=== PATIENT | female | born 1970 | race Caucasian/White ===

== ENCOUNTER → 2017-01-14 | Outpatient (CLI) | payer BC ==
[~2017-01-14] MED LIST: CETI10TA PO; IBUP60TA PO; NORCOTAB PO; WELLTAB38 PO; XANA0.25 PO; epi pen
--- NOTE | 2017-01-14 08:48 | REPMRS ---
Patient History The patient states she had a clinical breast exam in 11/2016. Patient is postmenopausal. No known family history of cancer. Digital Woman Screen Mammo: January 14, 2017 - Exam #: [id number] Bilateral CC and MLO view(s) were taken. Technologist: Darline Victor, Technologist Prior study comparison: December 29, 2015, digital woman screen mammo performed at [facility]. December 16, 2014, digital woman screen mammo performed at [facility]. November 25, 2013, digital woman screen mammo performed at [facility]. FINDINGS: There are scattered fibroglandular densities. Radiolucent nipple jewelry is noted bilaterally. There has been no change in the appearance of the mammogram from the prior studies. There is a mild amount of scattered fibroglandular density which is fairly symmetric. There is no interval development of dominant mass, architectural distortion, or clustered microcalcification suggestive of malignancy. ASSESSMENT: BI-RADS/ACR category 1 mammogram. Negative. Recommendation Routine screening mammogram in 1 year (for women over age 40). This mammogram was interpreted with the aid of an FDA-approved computer-aided dectection system. Electronically Signed By: Weston Olson MD 01/14/17 0883
== END ==
LOC: M WHC 07:48
PROVIDERS: ATTEND Obstetrics & Gynecology
DX: Z12.31 Encounter for screening mammogram for malignant neoplasm of breast (principal)

== ENCOUNTER → 2018-02-03 | Outpatient (CLI) | payer BC | LOC: M WHC 12:13 | DX: Z12.31 Encounter for screening mammogram for malignant neoplasm of breast (principal) | CPT/HCPCS: 77067 ==

== ENCOUNTER → 2019-02-24 | Outpatient (CLI) | payer BC ==
[~2019-02-24] MED LIST changes: +HYDR-3715 PO; +IBUP600T42 PO; -IBUP60TA PO; -NORCOTAB PO
--- NOTE | 2019-02-24 16:45 | REPMRS ---
Patient History The patient states she had a clinical breast exam in 01/2019. No known family history of cancer. 3D TOMOSYNTHESIS WAS PERFORMED. The [facility] lifetime risk for breast cancer is 8.4%. Digital Woman Screen Mammo: February 24, 2019 - Exam #: [id number] Bilateral CC and MLO view(s) were taken. Technologist: Daniela Burnham, Technologist Prior study comparison: February 03, 2018, bilateral digital woman screen mammo performed at [facility]. January 14, 2017, digital woman screen mammo performed at [facility]. FINDINGS: There are scattered fibroglandular densities. There has been no change in the appearance of the mammogram from the prior studies. There is a mild amount of residual fibroglandular tissue which is fairly symmetric. There is no interval development of dominant mass, architectural distortion, or clustered microcalcification suggestive of malignancy. Assessment: BI-RADS/ACR category 1 mammogram. Negative Mammogram. Recommendation Routine screening mammogram in 1 year (for women over age 40). This mammogram was interpreted with the aid of an FDA-approved computer-aided dectection system. Electronically Signed By: Ulisses Samano MD 02/24/19 [id number]
== END ==
LOC: M WHC 14:53
PROVIDERS: ATTEND Obstetrics & Gynecology
DX: Z12.31 Encounter for screening mammogram for malignant neoplasm of breast (principal)

== ENCOUNTER → 2019-05-14 | Outpatient (CLI) | payer BC, OTHER ==
--- NOTE | 2019-05-14 09:53 | REP ---
MRI left knee without contrast: History: Pain in the left knee. Rule out meniscal tear. No comparison radiographs. Technique: Axial, coronal and sagittal imaging planes were utilized. T1 and T2-weighted scans were obtained with and without fat saturation. MRI findings: Cortical and medullary bone signal intensity are normal. There is a tiny amount of joint fluid. A small Galeano's cyst is seen in the posteromedial popliteal soft tissues. This measures up to 2.3 cm in length. It is quite small. Medial and lateral patellar retinacular structures are intact. Patellar and quadriceps tendons have an intact appearance. There is no evidence of anterior or posterior cruciate ligament disruption. Medial and lateral collateral ligamentous components appear intact. There is a focal tear of the inner free margin of the anterior horn of the lateral meniscus visible on sagittal images. No displaced meniscal material is seen. No medial meniscal tear is appreciated. There is mild chondromalacia in the medial and central patella. No full-thickness articular cartilage lesion is seen. The exam is otherwise unremarkable. Impression: Findings consistent with a small tear in the inner free margin anterior horn lateral meniscus. Small joint effusion and small Galeano's cyst. Chondromalacia patella. Electronically Signed by Fidel Olson MD 05/14/2019 10:54 A
== END ==
LOC: M RAD 06:30
PROVIDERS: ATTEND Orthopaedic Surgery Sports Medicine
DX: M22.42 Chondromalacia patellae, left knee (principal); M71.22 Synovial cyst of popliteal space [Baker], left knee; M25.462 Effusion, left knee

== ENCOUNTER → 2020-03-24 | Outpatient (CLI) | payer BC ==
--- NOTE | 2020-03-24 16:07 | REPMRS ---
Patient History The patient states she had a clinical breast exam in 2019. No known family history of cancer. 3D TOMOSYNTHESIS WAS PERFORMED. [facility] lifetime [facility] for breast cancer is 8.3%. VOLPARA DENSITY B. Digital Woman Screen Mammo: March 24, 2020 - Exam #: [id number] Bilateral CC and MLO view(s) were taken. Technologist: Stacie Noble, Technologist Prior study comparison: February 24, 2019, bilateral digital woman screen mammo performed at [facility]. February 03, 2018, bilateral digital woman screen mammo performed at [facility]. FINDINGS: There are scattered fibroglandular densities. There has been no change in the appearance of the mammogram from the prior studies. There is a mild amount of residual fibroglandular tissue which is fairly symmetric. There is no interval development of dominant mass, architectural distortion, or clustered microcalcification suggestive of malignancy. Assessment: BI-RADS/ACR category 1 mammogram. Negative Mammogram. Recommendation Routine screening mammogram in 1 year (for women over age 40). This mammogram was interpreted with the aid of an FDA-approved computer-aided dectection system. Electronically Signed By: Ulisses Samano MD 03/24/20 [id number]
== END ==
LOC: M WHC 15:22
PROVIDERS: ATTEND Obstetrics & Gynecology
DX: Z12.31 Encounter for screening mammogram for malignant neoplasm of breast (principal)

== ENCOUNTER → 2021-04-19 | Outpatient (CLI) | payer BC, OTHER ==
[~2021-04-19] MED LIST changes: +ATOR1TAB19
== END ==
LOC: M LABSMTC 11:00
PROVIDERS: ATTEND Anesthesiology
DX: Z01.812 Encounter for preprocedural laboratory examination (principal); Z20.822 Contact with and (suspected) exposure to COVID-19

== ENCOUNTER 2021-04-24 09:30 | Day surgery (SDC) | payer BC, OTHER ==
[~2021-04-24] VITALS: Ht 160 cm; Wt 77.5 kg
[~2021-04-24 09:30] MED LIST changes: +NS 1,000 ML IV ONE
--- OUTSIDE RECORDS SUMMARY | 2021-04-24 09:35 | CCD | Continuity of Care Document ---
Author Author Maribel HARE RPA Organization Unknown Address [address] [facility] [address] [place] [address] Phone [phone] Problems Active Problems Provider Date Posttraumatic stress disorder Gerson Hare RPA Onset: 08/17/2011 Anxiety state Gerson Hare RPA Onset: 08/17/2011 Allergic condition Gerson Hare RPA Onset: 12/13/2011 Allergic urticaria Gerson Hare RPA Onset: 03/18/2012 Hyperlipidemia Gerson Hare RPA Onset: 07/25/2015 Moderate recurrent major depression Gerson Hare RPA O nset: 07/25/2015 Knee pain Gerson Hare RPA Onset: 11/16/2019 Migraine without aura, not refractory Gerson Hare RPA Onset: 01/16/2021 Screening for malignant neoplasm of colon Gerson Hare RPA Onset: 01/16/2021 Social History Type Date Description Comments Sex Unknown ETOH Use Occasionally consumes alcohol Tobacco Use Start: Unknown Patient has never smoked Seat Belt/Car Seat Always uses seat belt Allergies and adverse reactions Active Allergies Criticality Reaction | Severity Comments Date Sulfa Drugs Unable to assess criticality 08/17/2011 Cephalosporins Unable to assess criticality 08/17/2011 Cefzil Unable to assess criticality 08/17/2011 Bee Sting Unable to assess criticality 08/17/2011 Medications Active Medications SIG Qnty Indications Ordering Provide r Date Moderna Covid-19 Vaccine 100mcg/0.5ML Suspension 06/29/2020 & 07/27/2020 Jarred Waller D.O., FAAFP 10/10/2020 Diclofenac Sodium 1% Gel apply topically four times a day to right neck base 100gm Jarred peña D.O., FAAFP 07/29/2020 Atorvastatin Calcium 10mg Tablets 1 by mouth every day 90tabs Jarred Waller D.O., FAAFP Epipen 2-Selvin 0.3mg/0 .3ML Solution Auto-Inject inject as directed 1units Jarred Waller D.O., FAAFP 10/27/2015 Wellbutrin XL 150mg Tablets ER 24H R 2 by mouth every day 180tabs Jarred Waller D.O., FAAFP Xanax 0.25mg Tablets 1 tab by mouth every day as needed anxiety (istop: [id number]) 30tabs Jarred Waller D.O., FAAFP 08/17/2011 History Medications Topiramate 25mg Tablets take one tablet by mouth twice a day 60tabs Jarred Waller D.O., FAAFP 0 01/16/2021 - 04/17/2021 Immunizations CPT Code Status Date Vaccine Reaction Lot # [id number] Refused 04/17/2021 Influenza Virus Vaccine, Quadrivalent, Slit Virus, Im Use 3Y & Up 52817 Refused 02/29/2020 Influenza Virus Vaccine, Quadrivalent, Slit Virus, Im Use 3Y & Up 37477 Refused 03/23/2019 Influenza Virus Vaccine, Quadrivalent, Slit Virus, Im Use 3Y & Up RECEIVES AT WORK. Vital Signs Date Vital Result Comment 04/17/2021 8:36am BP Systolic 102 mmHg BP Diastolic 70 mmHg Body Temperature 98.2 F Heart Rate 78 /min Respiratory Rate 16 /min Height 63.50 inches 5'3.50" Weight 173.00 lb [place] Body Weight 115 lb BMI (Body Mass Index) 30.2 kg/m2 O2 % BldC Oximetry 97 % 01/16/2021 8:55am BP Systolic 112 mmHg BP Diastolic 72 mmHg Body Temperature 97.3 F Heart Rate 82 /min Respiratory Rate 16 /min Height 63.50 inches 5'3.50" Weight 170.00 lb [place] Body Weight 115 lb BMI (Body Mass Index) 29.6 kg/m2 O2 % BldC Oximetry 98 % Results Test Acquired Date Facility Test Result H/L Range Note Coronavirus 2019 Nasopharygeal 04/19/2021 [facility] ([facility]) [phone] Coronavirus 2019 Nasopharygeal ASSAY INFORMATIO <SEE N OTE> 1 CBC 04/17/2021 [facility] WBC 5.6 10E3/uL 4.1 - 10.9 2 RBC 4.53 10E6/uL 4.20 - 6.30 HGB 13.5 g/dL 12.0 - 18.0 HCT 40.6 % 37.0 - 51.0 MCV 89.6 fL 80.0 - 97.0 MCH 29.8 pg 26.0 - 32.0 MCHC 33.3 g/dL 31.0 - 36.0 PLT 279 10E3/uL 140 - 440 RDW-CV 12.0 % 11.5 - 14.5 Lym% 24.0 % 10.0 - 58.5 Neut% 68.6 % 37.0 - 92.0 MXD% 7.4 % 0.1 - 24.0 Lym# 1.3 10E3/uL 0.6 - 4.1 Neut# 3.9 % 2.0 - 7.8 MXD# 0.4 10E3/uL 0.0 - 1.8 MPV 8.7 fL Low 9.0 - 13.0 CMP 04/17/2021 [facility] Glu 83 mg/dL 70 - 110 BUN 11 mg/dL 8 - 23 Creat 0.8 mg/dL 0.5 - 1.0 BUN/Creatinine Ratio 13.6 CALC Na 139 mmol/L 136 - 145 K 4.5 mmol/L 3.5 - 5.1 CL 100.9 mmol/L 98.0 - 107.0 Co2 25.5 mmol/L 22.0 - 29.0 CA 10.2 mg/dL 8.6 - 10.2 TP 7.2 g/dL 6.6 - 8.7 Alb 4.6 g/dL 3.4 - 4.8 A/G Ratio 1.7 CALC Globulin 2.6 CALC Alp 95.6 U/L 35 - 129 Alt (SGPT) 26 U/L 0 - 41 Ast (Sgot) 23 U/L 0 - 40 Tbili 0.25 mg/dL 0.0 - 1.2 Osmolality-Calculated 275.7 CALC Anion Gap 17 mmol/L eGFR 100 # Calc 3 eGFR Non-Afr. [place] Islander 86 # Calc 4 Lipid Panel 04/17/2021 [facility] Chol 206 mg/dL High 0 - 200 Trig 37 mg/dL Low 40 - 200 HDL 84 mg/dL High 45 - 65 LDL_C 114 Calc 75 - 129 Cho/HDL Ratio 2.4 CALC Laboratory test finding 04/17/2021 [facility] TSH 1.461 ulU/mL 0.60 - 4.8 1 ASSAY INFORMATION: Real Time RT-PCR NOTE: The COVID-19 assay has been cleared by the U.S. Food and Drug Administration under the Emergency Use Authorization (EUA). [employer] and [facility] are designated as high complexity laboratories by the Clinical Laboratory Improvement Amendments of 1988(CLIA) and are qualified to perform this test. Not Detected 2 NORMAL RANGES Age WBC RBC HGB HCT MCV PLT Adult M 4.1-10.9 4.20-6.30 12.0-18.0 37.0-51.0 80-97 140-440 Adult F 4.1-10.9 4.04-5.48 12.0-18.0 37.0-51.0 80-97 140-440 0 -1 Yr 5.0-20.0 3.9-5.9 15-18 MV: 44 MV: 91 MV: 277 2-9 Yr. 6.0-17.0 3.8-5.4 11-13 MV: 37 MV: 78 MV: 300 10 Yrs. 5.0-13.0 3.8-5.4 12-15 MV: 39 MV: 80 MV: 250 NOTE: * FOR ADULT BLACK MALES AND FEMALES, NORMAL WBC IS 2.9-7.7 K/ML * FOR ADULT BLACK MALES AND FEMALES, NORMAL RBC,HGB, AND HCT IS 5% LESS SOURCE FOR DATA: [employer] 1800 OPERATION MANUAL( AUTOMATED BLOOD COUNTS AND DIFF.) APPENDIX B-3 CHRONIC KIDNEY DISEASE STAGING PER NKF: MALE GFR INTERPRETATION: 20-49 YRS: >60 mL/min Normal 50-59 YRS: >56 mL/min Normal 60-69 YRS: >49 mL/min Normal 70-79 YRS: >42 mL/min Normal 80 and above >35 mL/min Normal FEMALE GRF INTERPRETATION: 20-39 YRS: >60 mL/min Normal 40-49 YRS: >58 mL/min Normal 50-59 YRS: >51 mL/min Normal 60-69 YRS: >45 mL/min Normal 70-79 YRS: >39 mL/min Normal 80 and above >32 mL/min NormalCLASSIFICATION CHOLESTEROL FOR ADULTS CHILDREN/ADOLESCENTS* DESIRABLE: <200 MG/DL <170 MG/DL BORDER-LINE HIGH RISK: 200-239 MG/DL 170-199 MG/DL HIGH RISK: >240 MG/DL >200 MG/DL CLASS. FOR PRIMARY LDL CHOL PREVENTION: LDL CHOL-CHILD/ADOLESCENTS* DESIRABLE: <130 MG/DL <110 MG/DL BORDERLINE-HIGH RISK: 130-159 MG/DL 110-129 MG/DL HIGH RISK: >160 MG/DL >130 MG/DL *CHILDREN AND ADOLESCENTS REPRESENTS INDIVIDUALA AGED 2-19 YEARS EXCLUSIVE. 3 CKD-EPI 4 CKD-EPI Procedures Date Code Description Status 04/17/2021 32763 Office/Outpatient Established Mo d MDM 30-39 Min Completed 01/16/2021 47227 Office/Outpatient Established Mo d MDM 30-39 Min Completed Medical Devices Description No Information Available Encounters Type Date Location Provider Dx Diagnosis Office Visit 04/17/2021 8:30a [place] [facility] Gerson Hare, RP A E78.5 Hyperlipidemia, unspecified L50.0 Allergic urticaria F41.9 Anxiety disorder, unspecifie d F33.1 Major depressive disorder, r ecurrent, moderate Office Visit 01/16/2021 8:45a [place] [facility] Gerson Hare RP A E78.5 Hyperlipidemia, unspecified Z12.11 Encounter for screening for malignant neoplasm of colon L50.0 Allergic urticaria G43.009 Migraine w/o aura, not intra ctable, w/o status migrainosus Assessments Date Code Description Provider 04/17/2021 E78.5 Hyperlipidemia, unspecified Gerson Vyas, RPA 04/17/2021 L50.0 Allergic urticaria Smith Hare, RPA 04/17/2021 F41.9 Anxiety disorder, unspecified Gerson Yadav, RPA 04/17/2021 F33.1 Major depressive disorder, recur rent, moderate Gerson Hare, RPA 01/16/2021 E78.5 Hyperlipidemia, unspecified Gerson Vyas, RPA 01/16/2021 Z12.11 Encounter for screening for ish gnant neoplasm of colon Gerson Hare, RPA 01/16/2021 L50.0 Allergic urticaria Smith Hare, RPA 01/16/2021 G43.009 Migraine without aur a, not intractable, without status migrainosus Gerson Hare, RPA Plan of Treatment Future Appointment(s):* 07/24/2021 8:45 am - Gerson Hare, ROBLES at [place] [facility] Functional Status Description No Information Available Mental Status Description No Information Available Referrals Refer to Reason for Referral Status Appt Date Reji Preciado M.D. Colonoscopy Sent [address] [address] [phone]
--- OUTSIDE RECORDS SUMMARY | 2021-04-24 09:35 | CCD | Continuity of Care Document ---
Author Author Maribel HARE RPA Organization Unknown Address 3 [facility] [address] [place] [address] Phone [phone] Problems Active Problems Provider Date Posttraumatic stress [...] Solution Auto-Inject inject as directed 1units Jarred Wlaler D.O., FAAFP 10/27/2015 Wellbutrin XL 150mg Tablets ER 24H R 2 by mouth every day 180tabs Jarred Waller D.O., FAAFP Xanax 0.25mg Tablets 1 tab by mouth every day as needed anxiety (istop: [id number]) 30tabs Jarred Waller D.O., FAAFP 08/17/2011 History Medications Topiramate 25mg Tablets take one tablet by mouth twice a day 60tabs Jarred Waller D.O., FAAFP 0 01/16/2021 - 04/17/2021 Immunizations CPT Code Status Date Vaccine Reaction Lot # [id number] Refused 04/17/2021 Influenza Virus Vaccine, Quadrivalent, Slit Virus, Im Use 3Y & Up 60609 Refused 02/29/2020 Influenza Virus Vaccine, Quadrivalent, Slit Virus, Im Use 3Y & Up 89485 Refused 03/23/2019 Influenza Virus Vaccine, Quadrivalent, Slit Virus, Im Use 3Y & Up RECEIVES AT WORK. Vital Signs Date Vital Result Comment 04/17/2021 8:36am BP Systolic 102 mmHg BP Diastolic 70 mmHg Body Temperature 98.2 F Heart Rate 78 /min Respiratory Rate 16 /min Height 63.50 inches 5'3.50" Weight 173.00 lb [place] Body Weight 115 lb BMI (Body Mass Index) 30.2 kg/m2 O2 % BldC Oximetry 97 % 01/16/2021 8:55am BP Systolic 112 mmHg BP Diastolic 72 mmHg Body Temperature 97.3 F Heart Rate 82 /min Respiratory Rate 16 /min Height 63.50 inches 5'3.50" Weight 170.00 lb [place] Body Weight 115 lb BMI (Body Mass Index) 29.6 kg/m2 O2 % BldC Oximetry 98 % Results Test Acquired Date Facility Test Result H/L Range Note CBC 04/17/2021 [facility] WBC 5.6 10E3/uL 4.1 - 10.9 1 RBC 4.53 10E6/uL 4.20 - 6.30 HGB [...] Gap 17 mmol/L eGFR 100 # Calc 2 eGFR Non-Afr. [place]ammar[place] 86 # Calc 3 Lipid Panel 04/17/2021 [facility] Chol 206 mg/dL High 0 - 200 Trig 37 mg/dL Low 40 - 200 HDL 84 mg/dL High 45 - 65 LDL_C 114 Calc 75 - 129 Cho/HDL Ratio 2.4 CALC Laboratory test finding 04/17/2021 [facility] TSH <pending> 1 NORMAL RANGES Age WBC RBC HGB HCT [...] HCT IS 5% LESS SOURCE FOR DATA: [employer] 1800 OPERATION MANUAL( AUTOMATED BLOOD COUNTS AND [...] ADOLESCENTS REPRESENTS INDIVIDUALA AGED 2-19 YEARS EXCLUSIVE. 2 CKD-EPI 3 CKD-EPI Procedures Date Code Description Status 04/17/2021 97330 Office/Outpatient Established Mo d MDM 30-39 Min Completed 01/16/2021 80213 Office/Outpatient Established Mo d MDM 30-39 Min Completed Medical Devices Description No Information Available Encounters Type Date Location Provider Dx Diagnosis Office Visit 04/17/2021 8:30a [place] [facility] Gerson Hare, RP A E78.5 Hyperlipidemia, unspecified L50.0 Allergic urticaria F41.9 Anxiety disorder, unspecifie d F33.1 Major depressive disorder, r ecurrent, moderate Office Visit 01/16/2021 8:45a [facility] [facility] Gerson Hare, RP A E78.5 Hyperlipidemia, unspecified Z12.11 Encounter [...] ish gnant neoplasm of colon Gerson Hare, ROBLES 01/16/2021 L50.0 Allergic urticaria Smith Hare, ROBLES 01/16/2021 G43.009 Migraine without aur a, not intractable, without status migrainosus Gerson Hare RPA Plan of Treatment Future Appointment(s):* 07/24/2021 8:45 am - Gerson Hare RPA at [place] [facility] Functional Status Description No Information Available Mental Status Description No Information Available Referrals Refer to Reason for Referral Status Appt Date Reji Preciado M.D. Colonoscopy Sent [address] [address] [phone]
--- OUTSIDE RECORDS SUMMARY | 2021-04-24 09:35 | CCD | Continuity of Care Document ---
Author Author Maribel HARE RPA Organization Unknown Address 3 [facility] [address] [place] [address] Phone [phone] Problems Active Problems Provider Date Posttraumatic stress [...] mouth every day as needed anxiety (istop: [id number]) 30tabs Jarred Waller D.O., FAAFP 08/17/2011 History Medications Topiramate 25mg Tablets take one tablet by mouth twice a day 60tabs Jarred Waller D.O., FAAFP 0 01/16/2021 - 04/17/2021 Immunizations CPT Code Status Date Vaccine Reaction Lot # [id number] Refused 04/17/2021 Influenza Virus Vaccine, Quadrivalent, Slit Virus, Im Use 3Y & Up 27472 Refused 02/29/2020 Influenza Virus Vaccine, Quadrivalent, Slit Virus, Im Use 3Y & Up 56498 Refused 03/23/2019 Influenza Virus Vaccine, Quadrivalent, Slit Virus, Im Use 3Y & Up RECEIVES AT WORK. Vital Signs Date Vital Result Comment 04/17/2021 8:36am BP Systolic 102 mmHg BP Diastolic 70 mmHg Body Temperature 98.2 F Heart Rate 78 /min Respiratory Rate 16 /min Height 63.50 inches 5'3.50" Weight 173.00 lb [place] Body Weight 115 lb BMI (Body Mass Index) 30.2 kg/m2 O2 % BldC Oximetry 97 % 01/16/2021 8:55am BP Systolic 112 mmHg BP Diastolic 72 mmHg Body Temperature 97.3 F Heart Rate 82 /min Respiratory Rate 16 /min Height 63.50 inches 5'3.50" Weight 170.00 lb [place] Body Weight 115 lb BMI (Body Mass Index) 29.6 kg/m2 O2 % BldC Oximetry 98 % Results Test Acquired Date Facility Test Result H/L Range Note Coronavirus 2019 Nasopharygeal 04/19/2021 [facility] ([facility]) [phone] Coronavirus 2019 Nasopharygeal ASSAY INFORMATIO <SEE N [...] eGFR 100 # Calc 3 eGFR Non-Afr. [place] Islander 86 # Calc 4 Lipid Panel [...] Administration under the Emergency Use Authorization (EUA). [employer] [place] and [facility] are designated as high complexity laboratories by [...] HCT IS 5% LESS SOURCE FOR DATA: [employer] DYN 1800 OPERATION MANUAL( AUTOMATED BLOOD COUNTS [...] CKD-EPI Procedures Date Code Description Status 04/17/2021 70273 Office/Outpatient Established Mo d MDM 30-39 Min Completed 01/16/2021 09004 Office/Outpatient Established Mo d MDM 30-39 Min Completed Medical Devices Description No Information Available Encounters Type Date Location Provider Dx Diagnosis Office Visit 04/17/2021 8:30a [place] [facility] Gerson Hare, RP A E78.5 Hyperlipidemia, unspecified L50.0 Allergic urticaria F41.9 Anxiety disorder, unspecifie d F33.1 Major depressive disorder, r ecurrent, moderate Office Visit 01/16/2021 8:45a [facility] Gerson Hare RP A E78.5 Hyperlipidemia, [...] 8:45 am - Gerson Hare, ROBLES at [facility] Functional Status Description No Information Available Mental Status Description No Information Available Referrals Refer to Reason for Referral Status Appt Date Reji Preciado M.D. Colonoscopy Sent [address] [address] [phone]
--- OUTSIDE RECORDS SUMMARY | 2021-04-24 09:35 | CCD | Continuity of Care Document ---
Author Author Mairbel HARE RPA Organization Unknown Address 3 [facility] [address] [place] [address] Phone [phone] Problems Active Problems Provider Date Posttraumatic stress [...] mouth every day as needed anxiety (istop: [id number]) 30tabs Jarred Waller D.O., FAAFP 08/17/2011 History Medications Topiramate 25mg Tablets take one tablet by mouth twice a day 60tabs Jarred Waller D.O., FAAFP 0 01/16/2021 - 04/17/2021 Immunizations CPT Code Status Date Vaccine Reaction Lot # [id number] Refused 04/17/2021 Influenza Virus Vaccine, Quadrivalent, Slit Virus, Im Use 3Y & Up 89046 Refused 02/29/2020 Influenza Virus Vaccine, Quadrivalent, Slit Virus, Im Use 3Y & Up 13605 Refused 03/23/2019 Influenza Virus Vaccine, Quadrivalent, Slit Virus, Im Use 3Y & Up RECEIVES AT WORK. Vital Signs Date Vital Result Comment 04/17/2021 8:36am BP Systolic 102 mmHg BP Diastolic 70 mmHg Body Temperature 98.2 F Heart Rate 78 /min Respiratory Rate 16 /min Height 63.50 inches 5'3.50" Weight 173.00 lb [place] Body Weight 115 lb BMI (Body Mass Index) 30.2 kg/m2 O2 % BldC Oximetry 97 % 01/16/2021 8:55am BP Systolic 112 mmHg BP Diastolic 72 mmHg Body Temperature 97.3 F Heart Rate 82 /min Respiratory Rate 16 /min Height 63.50 inches 5'3.50" Weight 170.00 lb [place] Body Weight 115 lb BMI (Body Mass [...] eGFR 100 # Calc 2 eGFR Non-Afr. Thai 86 # Calc 3 Lipid Panel 04/17/2021 [...] HCT IS 5% LESS SOURCE FOR DATA: [employer] 1800 OPERATION MANUAL( AUTOMATED BLOOD COUNTS AND [...] CKD-EPI Procedures Date Code Description Status 04/17/2021 12669 Office/Outpatient Established Mo d MDM 30-39 Min Completed 01/16/2021 62020 Office/Outpatient Established Mo d MDM 30-39 Min Completed Medical Devices Description No Information Available Encounters Type Date Location Provider Dx Diagnosis Office Visit 04/17/2021 8:30a [place] [facility] Gerson Hare, RP A E78.5 Hyperlipidemia, unspecified L50.0 Allergic urticaria F41.9 Anxiety disorder, unspecifie d F33.1 Major depressive disorder, r ecurrent, moderate Office Visit 01/16/2021 8:45a [place] [facility] Gerson Hare, RP A E78.5 Hyperlipidemia, [...] 8:45 am - Gerson Hare RPA at [place] [facility] Functional Status Description No Information Available Mental Status Description No Information Available Referrals Refer to Reason for Referral Status Appt Date Reji Preciado M.D. Colonoscopy Sent [address] [address] [phone]
--- OUTSIDE RECORDS SUMMARY | 2021-04-24 09:36 | CCD | Continuity of Care Document ---
Author Author Maribel PATTON [facility] Organization Unknown Address [address], [address] [place] [address] Phone [phone] Care Team Providers Care Manufacturing Technology Analyst Name Role Phone Gerson Hare AUTM [phone] Problems Description No Active Problems Social History Type Date Description Comments Sex Unknown ETOH Use 1 A Week Tobacco Use Start: Unknown Patient has never smoked Allergies, Adverse Reactions, Alerts Active Allergies Criticality Reaction | Severity Comments Date Sulfa Unable to assess criticality 04/29/2019 Keflex Unable to assess criticality 02/20/2021 Cefprozil Unable to assess criticality 02/20/2021 Bee Sting Unable to assess criticality 02/20/2021 Medications Active Medications SIG Qnty Indications Ordering Provide r Date Clenpiq 10-3.5-12mg-GM -GM/160ML S olution take as directed per doctor's bowel prep instructions. 320ml Z12.1 1 Reji Preciado MD 03/14/[address] take 4 tabs by mouth prior to procedure per instructions. 4tabs Z12.11 Reji Preciado MD 03/14/2021 Wellbutrin SR 150mg Tablets ER 12H R 2 Daily Unknown Atorvastatin Calcium 10mg Tablets Daily Unknown Xanax 0.25mg Tablets 1 by mouth q4h/prn/anxiety Unknown Multivitamin Tablets 1 by mouth every day Unknown Immunizations Description No Information Available Vital Signs Date Vital Result Comment 03/14/2021 10:16am BP Systolic 108 mmHg BP Diastolic 72 mmHg Height 63 inches 5'3" Weight 173.00 lb BMI (Body Mass Index) 30.6 kg/m2 [place] Body Weight 115 lb Weight 78.473 kg BSA (Body Surface Area) 1.82 m2 08/31/2019 9:54am Body Temperature 98.5 F Results Description No Information Available Procedures Description No Information Available Medical Devices Description No Information Available Encounters Description No Information Available Assessments Date Code Description Provider 03/14/2021 Z12.11 Encounter for screening for ish gnant neoplasm of colon CHLOE Johnston Plan of Treatment 03/14/2021 - CHLOE Johnston* Z12.11 Encounter for screening for malignant neoplasm of colon * * New Medication:* Clenpiq 10-3.5-12 mg-GM -GM/160ML * Dulcolax 5 mg * New Orders:* Colonoscopy, Ordered: 03/14/21 * Comments:* Will arrange for colonoscopy. Reviewed risks and benefits of the procedure, as well as other options, with the patient. Bowel prep procedure was discussed with patient, as well as risks and side effects associated with the bowel prep. Patient verbalized understanding of all of the above and is in agreement to proceed. Patient will seek medical attention for any acute changes. Will monitor. * Follow up:* As scheduled, sooner if needed. Functional Status Description No Information Available Mental Status Description No Information Available Referrals Refer to Reason for Referral Status Appt Date Mihai Love M.D. COLO SCREEN Scheduled 03/14 [facility] [address], [address] [place] [id number] [phone]
--- OUTSIDE RECORDS SUMMARY | 2021-04-24 09:36 | CCD | Continuity of Care Document ---
Author Author Maribel CAMERON Organization Unknown Address [address] [place] [address] Phone [phone] Care Team Providers Care Airborne And Air Delivery Specialist Name Role Phone GuillaumeMariam diggs AUTM Unavailable Gerson Hare AUTM [phone] Problems Active Problems Provider Date Migraine Carolina Cameron MD Onset: 08/19/2014 Social History Type Date Description Comments Sex Unknown Tobacco Use Start: Unknown Never Smoked Cigarettes ETOH Use Non-smoker, Occasional Drinker, Non-drug User Tobacco Use Start: Unknown Patient has never smoked Smoking Status Reviewed: 04/03/21 Patient has never smoked Exercise Type/Frequency Exercises regularly Allergies and adverse reactions Active Allergies Criticality Reaction | Severity Comments Date sulfa Unable to assess criticality 08/19/2014 Cephalosporins Unable to assess criticality 08/19/2014 Bee Sting Unable to assess criticality 08/19/2014 Keflex Unable to assess criticality 01/27/2018 Envirnomental Unable to assess criticality 01/27/2018 Medications Active Medications SIG Qnty Indications Ordering Provide r Date Wellbutrin XL 150mg Tablets ER 24HR Unknown Xanax 0.25mg Tablets Unknown Atorvastatin Calcium 10mg Tablets Unknown Epipen 2-Selvin 0.3mg/0 .3ML Solution Auto-Inject use as directed for bee sting Unknown Immunizations Description No Information Available Vital Signs Date Vital Result Comment 04/03/2021 8:26am BP Systolic 122 mmHg BP Diastolic 68 mmHg Height 64 inches 5'4" Weight 174.00 lb BMI (Body Mass Index) 29.9 kg/m2 BSA (Body Surface Area) 1.84 m2 03/21/2020 3:12pm BP Systolic 114 mmHg BP Diastolic 68 mmHg Height 63.75 inches 5'3.75" Weight 167.00 lb BMI (Body Mass Index) 28.9 kg/m2 BSA (Body Surface Area) 1.81 m2 Results Test Acquired Date Facility Test Result H/L Range Note Thinprep W/Reflex HR HPV If Asc-US 04/03/2021 [facility] TP Reflex HPV ASCUS Normal Normal 1 TP Reflex HPV ASCUS SEE IMAGE 1 SPECIME N PART A. Vaginal, ThinPrep Pap ([employer]) CYTOLOGY HX-------- Date of Last Menstrual Period: n Other Information: Hysterectomy Previous Normal Pap: 03/21/20 FINAL DIAGNOSIS---- INTERPRETATION: Negative for Intraepithelial Lesion or Malignancy. SPECIMEN ADEQUACY:Satisfactory for evaluation. 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) (routine) w/o abn findings Z12.4 Encounter for screening for malignant neoplasm of cervix Z12.39 Encounter for oth screening for malignant neoplasm of breast Assessments Date Code Description Provider 04/03/2021 Z01.419 Encounter for gyneco logical examination (general) (routine) without abnormal findings Carolina Cameron MD 04/03/2021 Z12.4 Encounter for screening for ish gnant neoplasm of cervix Carolina Cameron MD 04/03/2021 Z12.39 Encounter for other screening for malignant neoplasm of breast Carolina Cameron MD Plan of Treatment Future Appointment(s):* 04/16/2022 8:45 am - Carolina Cameron MD at [facility] juke box mechanic 04/03/2021 - Carolina Cameron MD* Z01.419 Encounter for gynecological examination (general) (routine) without abnormal findings * Z12.4 Encounter for screening for malignant neoplasm of cervix * Z12.39 Encounter for other screening for malignant neoplasm of breast Functional Status Description No Information Available Mental Status Description No Information Available Referrals Description No Information Available
--- OUTSIDE RECORDS SUMMARY | 2021-04-24 09:36 | CCD ---
Author Author [facility] Organization [facility] Address Unknown Phone Unavailable Care Team Providers Care Rn Telehealth Name Role Phone Kenneth CAMERON MD Unavailable Unavailable Kenneth CAMERON MD Unavailable Unavailable Kenneth CAMERON MD Unavailable Unavailable CAMERON L JEANINE NELSON Unavailable Unavailable CAMERONKenneth MD Unavailable Unavailable CAMERON, Kenneth SOLORZANO MD Unavailable Unavailable CAMERONKenneth MD Unavailable Unavailable CAMERONKenneth MD Unavailable Unavailable CAMERONKenneth MD Unavailable Unavailable CAMERONKenneth MD Unavailable Unavailable CAMERONKenneth MD Unavailable Unavailable CAMERONKenneth MD Unavailable Unavailable CAMERONKenneth MD Unavailable Unavailable CAMERONKenneth MD Unavailable Unavailable Kenneth CAMERON MD Unavailable Unavailable CAMERONKenneth MD Unavailable Unavailable CAMERONKenneth MD Unavailable Unavailable CAMERONKenneth MD Unavailable Unavailable CAMERONKenneth MD Unavailable Unavailable CAMERONKenneth MD Unavailable Unavailable CAMERONKenneth MD Unavailable Unavailable Kenneth CAMERON MD Unavailable Unavailable CAMERONKenneth MD Unavailable Unavailable Kenneth CAMERON MD Unavailable Unavailable CAMERON L JEANINE NELSON Unavailable Unavailable CAMERONKenneth MD Unavailable Unavailable CAMERONKenneth MD Unavailable Unavailable CAMERONKenneth MD Unavailable Unavailable CAMERONKenneth MD Unavailable Unavailable Kenneth CAMERON MD Unavailable Unavailable Kenneth CAMERON MD Unavailable Unavailable RAKESH L JEANINE NELSON Unavailable Unavailable CAMERON L JEANINE NELSON Unavailable Unavailable Kenneth CAMERON MD Unavailable Unavailable CAMERONKenneth MD Unavailable Unavailable Kenneth CAMERON MD Unavailable Unavailable Kenneth CAMERON MD Unavailable Unavailable Kenneth CAMERON MD Unavailable Unavailable Kenneth CAMERON MD Unavailable Unavailable Kenneth CAMERON MD Unavailable Unavailable Kenneth CAMERON MD Unavailable Unavailable Kenneth CAMERON MD Unavailable Unavailable Kenneth CAMERON MD Unavailable Unavailable Kenneth CAMERON MD Unavailable Unavailable Kenneth CAMERON MD Unavailable Unavailable Payam, D Gerson PA Unavailable Unavailable Payam, D Gerson PA Unavailable Unavailable Payam, D Gerson PA Unavailable Unavailable Payam, D Gerson PA Unavailable Unavailable Payam, D Gerson PA Unavailable Unavailable Payam, D Gerson PA Unavailable Unavailable Payam, D Gerson PA Unavailable Unavailable Payam, D Gerson PA Unavailable Unavailable Payam, D Gerson PA Unavailable Unavailable Payam, D Gerson PA Unavailable Unavailable Payam, D Gerson PA Unavailable Unavailable Payam, D Gerson PA Unavailable Unavailable Payam, D Gerson PA Unavailable Unavailable Payam, D Gerson PA Unavailable Unavailable Payam, D Gerson PA Unavailable Unavailable Payam, D Gerson PA Unavailable Unavailable Payam, D Gerson PA Unavailable Unavailable Payam, D Gerson PA Unavailable Unavailable Payam, D Gerson PA Unavailable Unavailable Payam, D Gerson PA Unavailable Unavailable Payam, D Gerson PA Unavailable Unavailable Payam, D Gerson PA Unavailable Unavailable Payam, D Gerson PA Unavailable Unavailable Payam, D Gerson PA Unavailable Unavailable Payam, D Gerson PA Unavailable Unavailable Payam, D Gerson PA Unavailable Unavailable Payam, D Gerson PA Unavailable Unavailable Payam, D Gerson PA Unavailable Unavailable Payam, D Gerson PA Unavailable Unavailable Payam, D Gerson PA Unavailable Unavailable Payam, D Gerson PA Unavailable Unavailable Payam, D Gerson PA Unavailable Unavailable Payam, D Gerson PA Unavailable Unavailable Payam, D Gerson PA Unavailable Unavailable Payam, D Gerson PA Unavailable Unavailable Payam, D Gerson PA Unavailable Unavailable Payam, D Gerson PA Unavailable Unavailable Payam, D Gerson PA Unavailable Unavailable Payam, D Gerson PA Unavailable Unavailable Payam, D Gerson PA Unavailable Unavailable Payam, D Gerson PA Unavailable Unavailable Payam, D Gerson PA Unavailable Unavailable Payam, D Gerson PA Unavailable Unavailable Payam, D Gerson PA Unavailable Unavailable Payam, D Gerson PA Unavailable Unavailable Payam, D Gerson PA Unavailable Unavailable Payam, D Gerson PA Unavailable Unavailable Payam, D Gerson PA Unavailable Unavailable Payam, D Gerson PA Unavailable Unavailable Payam, D Gerson PA Unavailable Unavailable Payam, D Gerson PA Unavailable Unavailable Payam, D Gerson PA Unavailable Unavailable Payam, D Gerson PA Unavailable Unavailable Payam, D Gerson PA Unavailable Unavailable Payam, D Gerson PA Unavailable Unavailable Payam, D Gerson PA Unavailable Unavailable Payam, D Gerson PA Unavailable Unavailable Payam, D Gerson PA Unavailable Unavailable Payam, D Gerson PA Unavailable Unavailable Payam, D Gerson PA Unavailable Unavailable Payam, D Gerson PA Unavailable Unavailable Payam, D Gerson PA Unavailable Unavailable Payam, D Gerson PA Unavailable Unavailable Payam, D Gerson PA Unavailable Unavailable Payam, D Gerson PA Unavailable Unavailable Payam, D Gerson PA Unavailable Unavailable Payam, D Gerson PA Unavailable Unavailable Payam, D Gerson PA Unavailable Unavailable Re-disclosure Warning The records that you are about to access may contain information from federally-assisted alcohol or drug abuse programs. If such information is present, then the following federally mandated warning applies: This information has been disclosed to you from records protected by federal confidentiality rules (42 CFR part 2). The federal rules prohibit you from making any further disclosure of this information unless further disclosure is expressly permitted by the written consent of the person to whom it pertains or as otherwise permitted by 42 CFR part 2. A general authorization for the release of medical or other information is NOT sufficient for this purpose. The Federal rules restrict any use of the information to criminally investigate or prosecute any alcohol or drug abuse patient.The records that you are about to access may contain highly sensitive health information, the redisclosure of which is protected by Article 27-F of the [facility] Public Health law. If you continue you may have access to information: Regarding HIV / AIDS; Provided by facilities licensed or operated by the [facility] Office of Mental Health; or Provided by the [facility] Office for People With Developmental Disabilities. If such information is present, then the following [facility] mandated warning applies: This information has been disclosed to you from confidential records which are protected by state law. State law prohibits you from making any further disclosure of this information without the specific written consent of the person to whom it pertains, or as otherwise permitted by law. Any unauthorized further disclosure in violation of state law may result in a fine or mcc sentence or both. A general authorization for the release of medical or other information is NOT sufficient authorization for further disc losure. Family History Family Member Name Family Member Gender Family Member Status Date o f Status Description Data Source(s) Unknown Unknown Problem [facility] ([facility]) Unknown Unknown Problem [facility] ([facility] Encounters Encounter Providers Location Date Indications Data Source(s ) Outpatient Attender: Gerson MALAGON [place] [facility] 08:30:00 AM EDT [facility] ([facility] Outpatient Attender: JEANINE [facility] [employer] [facility] 09/2020 08:45:00 AM EDT [facility] ([facility]) Outpatient Attender: Gerson MALAGON [place] [facility] 08:45:00 AM EDT [facility] ([facility] Outpatient Attender: Gerson MALAGON [place] [facility] 05/2021 08:30:00 AM EDT [facility] ([facility] Outpatient Attender: Gerson MALAGON [place] [facility] 01:00:00 PM EST [facility] ([facility] Outpatient Attender: Gerson MALAGON [place] [facility] 09/2020 01:20:00 PM EST [facility] ([facility] Outpatient Attender: JEANINE [facility] 02:30:00 PM EDT [facility] ([facility]) Outpatient Attender: Gerson MALAGON [place] [facility] 10:40:00 AM EDT [facility] ([facility] Immunizations Vaccine Date Status Description Data Source(s) New in 2012. IIV4 04/17/2021 09:34:00 AM EDT completed [facility] ([facility] COVID-19 VACCINE Moderna 07/27/2020 12:00:00 AM EST completed [facility] Vaccine Series Complete: YESThis Data wa s Submitted to [facility] Via [employer]. COVID-19 VACCINE Moderna 06/29/2020 12:00:00 AM EST completed [facility] Vaccine Series Complete: NOThis Data was Submitted to [facility] Via [employer]. New in 2013. IIV4 02/29/2020 10:22:00 AM EDT completed [facility] ([facility] Medications Medication Brand Name Start Date Product Form Dose Route Admi nistrative Instructions Pharmacy Instructions Status Indications Reaction Description Data Source(s) atorvastatin 10 MG Oral Tablet ATORVASTATIN CALCIUM 04/17/2021 1 2:00:00 AM EDT tablet 90 TAKE ONE TABLET BY MOUTH EVERY D AY TAKE ONE TABLET BY MOUTH EVERY DAY SOLD: 04/21/2021 [facility] 24 HR Bupropion Hydrochloride 150 MG Extended Release Oral T ablet BUPROPION HCL 04/17/2021 12:00:00 AM EDT tablet extended release 24 hr 180 TAKE TWO TABLETS BY MOUTH EVERY DAY TAKE TWO TABLETS BY MOUTH EVERY DAY SOLD: 04/21/2021 [facility] Citric Acid 75 MG/ML / Magnesium Oxide 2 1.9 MG/ML / picosulfate sodium 0.0625 MG/ML Oral Solution [Clenpiq] 10 mg-3.5 gram -12 gram/160 mL SOD PICOSULF/MAG OX/CITRIC AC 03/28/2021 12:00:00 AM EDT solution 320 T JOHNNY PER DOCTOR'S BOWLE PREP INSTRUCTIONS TAKE PER DOCTOR'S BOWLE PREP INSTRUCTIONS SOLD: 03/28/2021 [facility] Clenpiq Clenpiq 03/14/2021 12:00:00 AM EDT active MED[facility] ([facility], ) Bisacodyl 5 MG Delayed Release Oral Tablet [Dulcolax] Dulcol ax 03/14/2021 12:00:00 AM EDT ORAL active M EDENT ([facility], ) 24 HR Bupropion Hydrochloride 150 MG Extended Release Oral T ablet BUPROPION HCL 01/17/2021 12:00:00 AM EDT tablet extended release 24 hr 180 TAKE TWO TABLETS BY MOUTH EVERY DAY TAKE TWO TABLETS BY MOUTH EVERY DAY SOLD: 01/19/2021 [facility] atorvastatin 10 MG Oral Tablet ATORVASTATIN CALCIUM 01/17/2021 1 2:00:00 AM EDT tablet 90 TAKE ONE TABLET BY MOUTH EVERY D AY TAKE ONE TABLET BY MOUTH EVERY DAY SOLD: 01/19/2021 [facility] 25 mg 01/17/2021 12:00:00 AM EDT tablet 60 TAKE ONE TABLET BY MOUTH TWICE A DAY TAKE ONE TABLET BY MOUTH TWICE A DAY SOLD: 01/19/2021 [facility] Alprazolam 0.25 MG Oral Tablet ALPRAZOLAM 01/17/2021 12:00:00 AM EDT tablet 30 TAKE ONE TABLET BY MOUTH EVERY DAY NE EDED FOR ANXIETY MAXIMUM DAILY DOSE = 1 TABLET TAKE ONE TABLET BY MOUTH EVERY DAY NE EDED FOR ANXIETY MAXIMUM DAILY DOSE = 1 TABLET SOLD: 01/19/2021 [facility] topiramate 25 MG Oral Tablet Topiramate 01/16/2021 12:00:00 AM EDT ORAL completed [facility] ([facility] Alprazolam 0.25 MG Oral Tablet ALPRAZOLAM 10/11/2020 12:00:00 AM EDT tablet 30 TAKE 1 TABLET BY MOUTH NEEDED FOR ANXIETY MAXIMUM D AILY DOSE = 1 TABLET TAKE 1 TABLET BY MOUTH NEEDED FOR ANXIETY MAXIMUM DAILY DOSE = 1 TABLET SOLD: 10/12/2020 [facility] atorvastatin 10 MG Oral Tablet ATORVASTATIN CALCIUM 10/10/2020 1 2:00:00 AM EDT tablet 90 TAKE ONE TABLET BY MOUTH EVERY D AY TAKE ONE TABLET BY MOUTH EVERY DAY SOLD: 10/12/2020 [facility] 24 HR Bupropion Hydrochloride 150 MG Extended Release Oral T ablet BUPROPION HCL 10/10/2020 12:00:00 AM EDT tablet extended release 24 hr 180 TAKE TWO TABLETS BY MOUTH EVERY DAY TAKE TWO TABLETS BY MOUTH EVERY DAY SOLD: 10/12/2020 [facility] [id number] 0.3 ML Epinephrine 1 MG/ML Auto-Injector EPINEPHRI NE 10/10/2020 12:00:00 AM EDT auto-injector 2 INJECT DIRECTED INJECT DIRECTED SOLD: 10/10/2020 [facility] Moderna Covid-19 Vaccine Moderna Covid-19 Vaccine 10/10/2020 12:00: 00 AM EDT active [facility] ([facility] Diclofenac Sodium 0.01 MG/MG Topical Gel Diclofenac Sodium 07/29/2020 12:00:00 AM EST active [facility] ([facility] 1 % 07/29/2020 12:00:00 AM EST gel 100 APPLY TOPICALLY FOUR TIMES A DAY TO RIGHT NECK BASE APPLY TOPICALLY FOUR TIMES A DAY TO RIGHT NECK BASE SO LD: 08/03/2020 [facility] 24 HR Bupropion Hydrochloride 150 MG Extended Release Oral T ablet BUPROPION HCL 07/19/2020 12:00:00 AM EST tablet extended release 24 hr 180 TAKE TWO TABLETS BY MOUTH EVERY DAY TAKE TWO TABLETS BY MOUTH EVERY DAY SOLD: 07/21/2020 [facility] atorvastatin 10 MG Oral Tablet ATORVASTATIN CALCIUM 07/19/2020 1 2:00:00 AM EST tablet 90 TAKE ONE TABLET BY MOUTH EVERY D AY TAKE ONE TABLET BY MOUTH EVERY DAY SOLD: 07/21/2020 [facility] atorvastatin 10 MG Oral Tablet ATORVASTATIN CALCIUM 04/16/2020 1 2:00:00 AM EDT tablet 90 TAKE ONE TABLET BY MOUTH EVERY D AY TAKE ONE TABLET BY MOUTH EVERY DAY SOLD: 04/18/2020 [facility] 24 HR Bupropion Hydrochloride 150 MG Extended Release Oral T ablet BUPROPION HCL 04/16/2020 12:00:00 AM EDT tablet extended release 24 hr 180 TAKE TWO TABLETS BY MOUTH EVERY DAY TAKE TWO TABLETS BY MOUTH EVERY DAY SOLD: 04/18/2020 [facility] Insurance Providers Payer name Policy type / Coverage type Policy ID Covered republican ID Covered republican's relationship to godoy Policy Godoy Plan Information [employer] [id number] Spo [id number] BCBS [place] [id number] EMPIRE ([facility]) O [id number] S [id number] [facility] EMPIRE PLAN [id number] 01 [id number] [employer] EMPIRE -PHYSICIAN [id number] 18 [id number] EMPIRE [facility] -[facility]/P [id number] [employer] EMPIRE -PHYSICIAN UNAVAILABLE 18 UNAVAILABLE [facility] [id number] 01 [id number] [facility] O [id number] S [id number] BCBS E[place]IRE [place] [id number] [facility] [id number] [facility] [id number] [facility] Maintenance Organization ([facility]) [id number] Family Dependent [id number] [facility] ([facility]) [id number] Family Dependent [id number] [facility] -PHYSICIAN [id number] [facility] [id number] 01 [id number] [facility] Commercial [id number] Family Dependent [facility] [id number] [facility] [id number] [facility] P [id number] S [id number] Problems, Conditions, and Diagnoses Code Display Name Description Problem Type Effective Dates Data Source(s) Z12.11 Screening for malignant neoplasm of colo n Screening for malignant neoplasm of colon Problem 01/16/2021 12:00:00 AM EDT [facility] ([facility] G43.009 Migraine without aura, not refractory Mi graine without aura, not refractory Problem 01/16/2021 12:00:00 AM EDT [facility] ([facility] Surgeries/Procedures Procedure Description Date Indications Data Source(s) OFFICE OUTPATIENT VISIT 25 MINUTES 04/17/2021 12:00:00 AM EDT [facility] ([facility] PERIODIC PREVENTIVE MED EST PATIENT 40-64YRS 12:00:00 AM EDT [facility] ([facility]) OFFICE OUTPATIENT VISIT 25 MINUTES 01/16/2021 12:00:00 AM EDT [facility] ([facility] OFFICE OUTPATIENT VISIT 25 MINUTES 10/10/2020 12:00:00 AM EDT [facility] ([facility] OFFICE OUTPATIENT VISIT 15 MINUTES 07/29/2020 12:00:00 AM EST [facility] ([facility] Results ID Date Data Source [id number] 04/19/2021 11:10:00 AM EDT MED[facility] ([facility] [employer] [facility] Name Value Range Interpretation Code Description Data Teagan rce(s) Supporting Document(s) Laboratory test finding (navigational concept) Laboratory test result MED[facility] ([facility] ASSAY INFORMATION: Real Time RT-PCR NOTE: The COVID-19 assay has been cleared by the U.S. Food and Drug Administration under the Emergency Use Authorization (EUA). [employer] and [employer] are designated as high complexity laboratories by the Clinical Laboratory Improvement Amendments of 1988(CLIA) and are qualified to perform this test. Not Detected ID Date Data Source [id number] 04/17/2021 09:09:00 AM EDT MED[facility] ([facility] Name Value Range Interpretation Code Description Data Teagan rce(s) Supporting Document(s) Chol 206 mg/dL 0-200 Above high normal MED[facility] ([facility] NORMAL RANGES Age WBC RBC HGB HCT [...] HCT IS 5% LESS SOURCE FOR DATA: [employer] 1800 OPERATION MANUAL( AUTOMATED BLOOD COUNTS AND [...] DESIRABLE: <130 MG/DL <110 MG/DL BORDERLINE-HIGH RISK: 130- 159 MG/DL 110-129 MG/DL HIGH RISK: >160 MG/DL >130 MG/DL *CHILDREN AND ADOLESCENTS REPRESENTS INDIVIDUALA AGED 2-19 YEARS EXCLUSIVE. Trig 37 mg/dL 40-200 Below low normal [facility] ( [facility] NORMAL RANGES Age WBC RBC HGB HCT [...] HCT IS 5% LESS SOURCE FOR DATA: [employer] 1800 OPERATION MANUAL( AUTOMATED BLOOD COUNTS AND [...] DESIRABLE: <130 MG/DL <110 MG/DL BORDERLINE-HIGH RISK: 130- 159 MG/DL 110-129 MG/DL HIGH RISK: >160 MG/DL >130 MG/DL *CHILDREN AND ADOLESCENTS REPRESENTS INDIVIDUALA AGED 2-19 YEARS EXCLUSIVE. Cholesterol in HDL [Mass/volume] in Serum or Plasma 84 mg/dL 45-65 Above high normal [facility] ) NORMAL RANGES Age WBC RBC HGB HCT [...] HCT IS 5% LESS SOURCE FOR DATA: [employer] 1800 OPERATION MANUAL( AUTOMATED BLOOD COUNTS AND [...] DESIRABLE: <130 MG/DL <110 MG/DL BORDERLINE-HIGH RISK: 130- 159 MG/DL 110-129 MG/DL HIGH RISK: >160 MG/DL >130 MG/DL *CHILDREN AND ADOLESCENTS REPRESENTS INDIVIDUALA AGED 2-19 YEARS EXCLUSIVE. Cho/HDL Ratio 2.4 CALC [employer] ([facility] NORMAL RANGES Age WBC RBC HGB HCT [...] HCT IS 5% LESS SOURCE FOR DATA: [employer] DYN 1800 OPERATION MANUAL( AUTOMATED BLOOD COUNTS [...] DESIRABLE: <130 MG/DL <110 MG/DL BORDERLINE-HIGH RISK: 130- 159 MG/DL 110-129 MG/DL HIGH RISK: >160 MG/DL >130 MG/DL *CHILDREN AND ADOLESCENTS REPRESENTS INDIVIDUALA AGED 2-19 YEARS EXCLUSIVE. LDL_C 114 Calc 75-129 [facility] ([facility] NORMAL RANGES Age WBC RBC HGB HCT [...] HCT IS 5% LESS SOURCE FOR DATA: [employer] 1800 OPERATION MANUAL( AUTOMATED BLOOD COUNTS AND [...] DESIRABLE: <130 MG/DL <110 MG/DL BORDERLINE-HIGH RISK: 130- 159 MG/DL 110-129 MG/DL HIGH RISK: >160 MG/DL >130 MG/DL *CHILDREN AND ADOLESCENTS REPRESENTS INDIVIDUALA AGED 2-19 YEARS EXCLUSIVE. ID Date Data Source [id number] 04/17/2021 09:09:00 AM EDT MED[facility] ([facility] Name Value Range Interpretation Code Description Data Teagan rce(s) Supporting Document(s) Glu 83 mg/dL 70-110 [facility] ([facility] NORMAL RANGES Age WBC RBC HGB HCT [...] HCT IS 5% LESS SOURCE FOR DATA: [employer] DYN 1800 OPERATION MANUAL( AUTOMATED BLOOD COUNTS [...] DESIRABLE: <130 MG/DL <110 MG/DL BORDERLINE-HIGH RISK: 130- 159 MG/DL 110-129 MG/DL HIGH RISK: >160 MG/DL >130 MG/DL *CHILDREN AND ADOLESCENTS REPRESENTS INDIVIDUALA AGED 2-19 YEARS EXCLUSIVE. Creat 0.8 mg/dL 0.5-1.0 [facility] NORMAL RANGES Age WBC RBC HGB HCT [...] HCT IS 5% LESS SOURCE FOR DATA: [employer] 1800 OPERATION MANUAL( AUTOMATED BLOOD COUNTS AND [...] DESIRABLE: <130 MG/DL <110 MG/DL BORDERLINE-HIGH RISK: 130- 159 MG/DL 110-129 MG/DL HIGH RISK: >160 MG/DL >130 MG/DL *CHILDREN AND ADOLESCENTS REPRESENTS INDIVIDUALA AGED 2-19 YEARS EXCLUSIVE. BUN 11 mg/dL 8-23 [facility] NORMAL RANGES Age WBC RBC HGB HCT [...] HCT IS 5% LESS SOURCE FOR DATA: [employer] 1800 OPERATION MANUAL( AUTOMATED BLOOD COUNTS AND [...] DESIRABLE: <130 MG/DL <110 MG/DL BORDERLINE-HIGH RISK: 130- 159 MG/DL 110-129 MG/DL HIGH RISK: >160 MG/DL >130 MG/DL *CHILDREN AND ADOLESCENTS REPRESENTS INDIVIDUALA AGED 2-19 YEARS EXCLUSIVE. BUN/Creatinine Ratio 13.6 CALC [facility] NORMAL RANGES Age WBC RBC HGB HCT [...] HCT IS 5% LESS SOURCE FOR DATA: [employer] DYN 1800 OPERATION MANUAL( AUTOMATED BLOOD COUNTS [...] DESIRABLE: <130 MG/DL <110 MG/DL BORDERLINE-HIGH RISK: 130- 159 MG/DL 110-129 MG/DL HIGH RISK: >160 MG/DL >130 MG/DL *CHILDREN AND ADOLESCENTS REPRESENTS INDIVIDUALA AGED 2-19 YEARS EXCLUSIVE. K 4.5 mmol/L 3.5-5.1 [facility] NORMAL RANGES Age WBC RBC HGB HCT [...] HCT IS 5% LESS SOURCE FOR DATA: [employer] 1800 OPERATION MANUAL( AUTOMATED BLOOD COUNTS AND [...] DESIRABLE: <130 MG/DL <110 MG/DL BORDERLINE-HIGH RISK: 130- 159 MG/DL 110-129 MG/DL HIGH RISK: >160 MG/DL >130 MG/DL *CHILDREN AND ADOLESCENTS REPRESENTS INDIVIDUALA AGED 2-19 YEARS EXCLUSIVE. CL 100.9 mmol/L 98.0-107.0 [facility] ([facility] NORMAL RANGES Age WBC RBC HGB HCT [...] HCT IS 5% LESS SOURCE FOR DATA: [employer] 1800 OPERATION MANUAL( AUTOMATED BLOOD COUNTS AND [...] DESIRABLE: <130 MG/DL <110 MG/DL BORDERLINE-HIGH RISK: 130- 159 MG/DL 110-129 MG/DL HIGH RISK: >160 MG/DL >130 MG/DL *CHILDREN AND ADOLESCENTS REPRESENTS INDIVIDUALA AGED 2-19 YEARS EXCLUSIVE. Na 139 mmol/L 136-145 [facility] NORMAL RANGES Age WBC RBC HGB HCT [...] HCT IS 5% LESS SOURCE FOR DATA: [employer] 1800 OPERATION MANUAL( AUTOMATED BLOOD COUNTS AND [...] DESIRABLE: <130 MG/DL <110 MG/DL BORDERLINE-HIGH RISK: 130- 159 MG/DL 110-129 MG/DL HIGH RISK: >160 MG/DL >130 MG/DL *CHILDREN AND ADOLESCENTS REPRESENTS INDIVIDUALA AGED 2-19 YEARS EXCLUSIVE. Co2 25.5 mmol/L 22.0-29.0 [facility] ([facility] NORMAL RANGES Age WBC RBC HGB HCT [...] HCT IS 5% LESS SOURCE FOR DATA: [employer] 1800 OPERATION MANUAL( AUTOMATED BLOOD COUNTS AND [...] DESIRABLE: <130 MG/DL <110 MG/DL BORDERLINE-HIGH RISK: 130- 159 MG/DL 110-129 MG/DL HIGH RISK: >160 MG/DL >130 MG/DL *CHILDREN AND ADOLESCENTS REPRESENTS INDIVIDUALA AGED 2-19 YEARS EXCLUSIVE. CA 10.2 mg/dL 8.6-10.2 [facility] ([facility] NORMAL RANGES Age WBC RBC HGB HCT [...] HCT IS 5% LESS SOURCE FOR DATA: [employer] 1800 OPERATION MANUAL( AUTOMATED BLOOD COUNTS AND [...] DESIRABLE: <130 MG/DL <110 MG/DL BORDERLINE-HIGH RISK: 130- 159 MG/DL 110-129 MG/DL HIGH RISK: >160 MG/DL >130 MG/DL *CHILDREN AND ADOLESCENTS REPRESENTS INDIVIDUALA AGED 2-19 YEARS EXCLUSIVE. Alb 4.6 g/dL 3.4-4.8 [facility] NORMAL RANGES Age WBC RBC HGB HCT [...] HCT IS 5% LESS SOURCE FOR DATA: [employer] 1800 OPERATION MANUAL( AUTOMATED BLOOD COUNTS AND [...] DESIRABLE: <130 MG/DL <110 MG/DL BORDERLINE-HIGH RISK: 130- 159 MG/DL 110-129 MG/DL HIGH RISK: >160 MG/DL >130 MG/DL *CHILDREN AND ADOLESCENTS REPRESENTS INDIVIDUALA AGED 2-19 YEARS EXCLUSIVE. TP 7.2 g/dL 6.6-8.7 [facility] ([facility] NORMAL RANGES Age WBC RBC HGB HCT [...] HCT IS 5% LESS SOURCE FOR DATA: [employer] 1800 OPERATION MANUAL( AUTOMATED BLOOD COUNTS AND [...] DESIRABLE: <130 MG/DL <110 MG/DL BORDERLINE-HIGH RISK: 130- 159 MG/DL 110-129 MG/DL HIGH RISK: >160 MG/DL >130 MG/DL *CHILDREN AND ADOLESCENTS REPRESENTS INDIVIDUALA AGED 2-19 YEARS EXCLUSIVE. Alp 95.6 U/L 35-129 [facility] ([facility] NORMAL RANGES Age WBC RBC HGB HCT [...] HCT IS 5% LESS SOURCE FOR DATA: [employer] 1800 OPERATION MANUAL( AUTOMATED BLOOD COUNTS AND [...] DESIRABLE: <130 MG/DL <110 MG/DL BORDERLINE-HIGH RISK: 130- 159 MG/DL 110-129 MG/DL HIGH RISK: >160 MG/DL >130 MG/DL *CHILDREN AND ADOLESCENTS REPRESENTS INDIVIDUALA AGED 2-19 YEARS EXCLUSIVE. Globulin 2.6 CALC [facility] ([facility] NORMAL RANGES Age WBC RBC HGB HCT [...] HCT IS 5% LESS SOURCE FOR DATA: [employer] DYN 1800 OPERATION MANUAL( AUTOMATED BLOOD COUNTS [...] DESIRABLE: <130 MG/DL <110 MG/DL BORDERLINE-HIGH RISK: 130- 159 MG/DL 110-129 MG/DL HIGH RISK: >160 MG/DL >130 MG/DL *CHILDREN AND ADOLESCENTS REPRESENTS INDIVIDUALA AGED 2-19 YEARS EXCLUSIVE. A/G Ratio 1.7 CALC [facility] ([facility] NORMAL RANGES Age WBC RBC HGB HCT [...] HCT IS 5% LESS SOURCE FOR DATA: [employer] 1800 OPERATION MANUAL( AUTOMATED BLOOD COUNTS AND [...] DESIRABLE: <130 MG/DL <110 MG/DL BORDERLINE-HIGH RISK: 130- 159 MG/DL 110-129 MG/DL HIGH RISK: >160 MG/DL >130 MG/DL *CHILDREN AND ADOLESCENTS REPRESENTS INDIVIDUALA AGED 2-19 YEARS EXCLUSIVE. Ast (Sgot) 23 U/L 0-40 [facility] NORMAL RANGES Age WBC RBC HGB HCT [...] HCT IS 5% LESS SOURCE FOR DATA: [employer] 1800 OPERATION MANUAL( AUTOMATED BLOOD COUNTS AND [...] DESIRABLE: <130 MG/DL <110 MG/DL BORDERLINE-HIGH RISK: 130- 159 MG/DL 110-129 MG/DL HIGH RISK: >160 MG/DL >130 MG/DL *CHILDREN AND ADOLESCENTS REPRESENTS INDIVIDUALA AGED 2-19 YEARS EXCLUSIVE. Alt (SGPT) 26 U/L 0-41 [facility] ([facility] NORMAL RANGES Age WBC RBC HGB HCT [...] HCT IS 5% LESS SOURCE FOR DATA: [employer] 1800 OPERATION MANUAL( AUTOMATED BLOOD COUNTS AND [...] DESIRABLE: <130 MG/DL <110 MG/DL BORDERLINE-HIGH RISK: 130- 159 MG/DL 110-129 MG/DL HIGH RISK: >160 MG/DL >130 MG/DL *CHILDREN AND ADOLESCENTS REPRESENTS INDIVIDUALA AGED 2-19 YEARS EXCLUSIVE. Osmolality-Calculated 275.7 CALC MED ENT ([facility] NORMAL RANGES Age WBC RBC HGB HCT [...] HCT IS 5% LESS SOURCE FOR DATA: [employer] 1800 OPERATION MANUAL( AUTOMATED BLOOD COUNTS AND [...] DESIRABLE: <130 MG/DL <110 MG/DL BORDERLINE-HIGH RISK: 130- 159 MG/DL 110-129 MG/DL HIGH RISK: >160 MG/DL >130 MG/DL *CHILDREN AND ADOLESCENTS REPRESENTS INDIVIDUALA AGED 2-19 YEARS EXCLUSIVE. Tbili 0.25 mg/dL 0.0-1.2 [facility] ([facility] NORMAL RANGES Age WBC RBC HGB HCT [...] HCT IS 5% LESS SOURCE FOR DATA: [employer] 1800 OPERATION MANUAL( AUTOMATED BLOOD COUNTS AND [...] DESIRABLE: <130 MG/DL <110 MG/DL BORDERLINE-HIGH RISK: 130- 159 MG/DL 110-129 MG/DL HIGH RISK: >160 MG/DL >130 MG/DL *CHILDREN AND ADOLESCENTS REPRESENTS INDIVIDUALA AGED 2-19 YEARS EXCLUSIVE. Anion Gap 17 mmol/L [facility] ([facility] NORMAL RANGES Age WBC RBC HGB HCT [...] HCT IS 5% LESS SOURCE FOR DATA: [employer] 1800 OPERATION MANUAL( AUTOMATED BLOOD COUNTS AND [...] DESIRABLE: <130 MG/DL <110 MG/DL BORDERLINE-HIGH RISK: 130- 159 MG/DL 110-129 MG/DL HIGH RISK: >160 MG/DL >130 MG/DL *CHILDREN AND ADOLESCENTS REPRESENTS INDIVIDUALA AGED 2-19 YEARS EXCLUSIVE. eGFR 100 # [facility] ( [facility] NORMAL RANGES Age WBC RBC HGB HCT [...] HCT IS 5% LESS SOURCE FOR DATA: [employer] 1800 OPERATION MANUAL( AUTOMATED BLOOD COUNTS AND [...] DESIRABLE: <130 MG/DL <110 MG/DL BORDERLINE-HIGH RISK: 130- 159 MG/DL 110-129 MG/DL HIGH RISK: >160 MG/DL >130 MG/DL *CHILDREN AND ADOLESCENTS REPRESENTS INDIVIDUALA AGED 2-19 YEARS EXCLUSIVE. eGFR Non-Afr. [place]se 86 # [facility] ([facility] NORMAL RANGES Age WBC RBC HGB HCT [...] HCT IS 5% LESS SOURCE FOR DATA: [employer] DYN 1800 OPERATION MANUAL( AUTOMATED BLOOD COUNTS [...] DESIRABLE: <130 MG/DL <110 MG/DL BORDERLINE-HIGH RISK: 130- 159 MG/DL 110-129 MG/DL HIGH RISK: >160 MG/DL >130 MG/DL *CHILDREN AND ADOLESCENTS REPRESENTS INDIVIDUALA AGED 2-19 YEARS EXCLUSIVE. ID Date Data Source [id number] 04/17/2021 09:09:00 AM EDT [facility] ([facility] Name Value Range Interpretation Code Description Data Teagan rce(s) Supporting Document(s) WBC 5.6 10E3/uL 4.1-10.9 [facility] ([facility] NORMAL RANGES Age WBC RBC HGB HCT [...] HCT IS 5% LESS SOURCE FOR DATA: [employer] 1800 OPERATION MANUAL( AUTOMATED BLOOD COUNTS AND [...] DESIRABLE: <130 MG/DL <110 MG/DL BORDERLINE-HIGH RISK: 130- 159 MG/DL 110-129 MG/DL HIGH RISK: >160 MG/DL >130 MG/DL *CHILDREN AND ADOLESCENTS REPRESENTS INDIVIDUALA AGED 2-19 YEARS EXCLUSIVE. RBC 4.53 10E6/uL 4.20-6.30 [facility] ([facility] NORMAL RANGES Age WBC RBC HGB HCT [...] HCT IS 5% LESS SOURCE FOR DATA: [employer] 1800 OPERATION MANUAL( AUTOMATED BLOOD COUNTS AND [...] DESIRABLE: <130 MG/DL <110 MG/DL BORDERLINE-HIGH RISK: 130- 159 MG/DL 110-129 MG/DL HIGH RISK: >160 MG/DL >130 MG/DL *CHILDREN AND ADOLESCENTS REPRESENTS INDIVIDUALA AGED 2-19 YEARS EXCLUSIVE. HCT 40.6 % 37.0-51.0 [facility] ([facility] NORMAL RANGES Age WBC RBC HGB HCT [...] HCT IS 5% LESS SOURCE FOR DATA: [employer] 1800 OPERATION MANUAL( AUTOMATED BLOOD COUNTS AND [...] DESIRABLE: <130 MG/DL <110 MG/DL BORDERLINE-HIGH RISK: 130- 159 MG/DL 110-129 MG/DL HIGH RISK: >160 MG/DL >130 MG/DL *CHILDREN AND ADOLESCENTS REPRESENTS INDIVIDUALA AGED 2-19 YEARS EXCLUSIVE. HGB 13.5 g/dL 12.0-18.0 [facility] ([facility] NORMAL RANGES Age WBC RBC HGB HCT [...] HCT IS 5% LESS SOURCE FOR DATA: [employer] 1800 OPERATION MANUAL( AUTOMATED BLOOD COUNTS AND [...] DESIRABLE: <130 MG/DL <110 MG/DL BORDERLINE-HIGH RISK: 130- 159 MG/DL 110-129 MG/DL HIGH RISK: >160 MG/DL >130 MG/DL *CHILDREN AND ADOLESCENTS REPRESENTS INDIVIDUALA AGED 2-19 YEARS EXCLUSIVE. MCV 89.6 fL 80.0-97.0 [facility] ([facility] NORMAL RANGES Age WBC RBC HGB HCT [...] HCT IS 5% LESS SOURCE FOR DATA: [employer] 1800 OPERATION MANUAL( AUTOMATED BLOOD COUNTS AND [...] DESIRABLE: <130 MG/DL <110 MG/DL BORDERLINE-HIGH RISK: 130- 159 MG/DL 110-129 MG/DL HIGH RISK: >160 MG/DL >130 MG/DL *CHILDREN AND ADOLESCENTS REPRESENTS INDIVIDUALA AGED 2-19 YEARS EXCLUSIVE. MCH 29.8 pg 26.0-32.0 [facility] ([facility] NORMAL RANGES Age WBC RBC HGB HCT [...] HCT IS 5% LESS SOURCE FOR DATA: [employer] DYN 1800 OPERATION MANUAL( AUTOMATED BLOOD COUNTS [...] DESIRABLE: <130 MG/DL <110 MG/DL BORDERLINE-HIGH RISK: 130- 159 MG/DL 110-129 MG/DL HIGH RISK: >160 MG/DL >130 MG/DL *CHILDREN AND ADOLESCENTS REPRESENTS INDIVIDUALA AGED 2-19 YEARS EXCLUSIVE. RDW-CV 12.0 % 11.5-14.5 [facility] ([facility] NORMAL RANGES Age WBC RBC HGB HCT [...] HCT IS 5% LESS SOURCE FOR DATA: [employer] 1800 OPERATION MANUAL( AUTOMATED BLOOD COUNTS AND [...] DESIRABLE: <130 MG/DL <110 MG/DL BORDERLINE-HIGH RISK: 130- 159 MG/DL 110-129 MG/DL HIGH RISK: >160 MG/DL >130 MG/DL *CHILDREN AND ADOLESCENTS REPRESENTS INDIVIDUALA AGED 2-19 YEARS EXCLUSIVE. PLT 279 10E3/uL 140-440 [facility] NORMAL RANGES Age WBC RBC HGB HCT [...] HCT IS 5% LESS SOURCE FOR DATA: [employer] 1800 OPERATION MANUAL( AUTOMATED BLOOD COUNTS AND [...] DESIRABLE: <130 MG/DL <110 MG/DL BORDERLINE-HIGH RISK: 130- 159 MG/DL 110-129 MG/DL HIGH RISK: >160 MG/DL >130 MG/DL *CHILDREN AND ADOLESCENTS REPRESENTS INDIVIDUALA AGED 2-19 YEARS EXCLUSIVE. MCHC 33.3 g/dL 31.0-36.0 [facility] ([facility] NORMAL RANGES Age WBC RBC HGB HCT [...] HCT IS 5% LESS SOURCE FOR DATA: [employer] 1800 OPERATION MANUAL( AUTOMATED BLOOD COUNTS AND [...] DESIRABLE: <130 MG/DL <110 MG/DL BORDERLINE-HIGH RISK: 130- 159 MG/DL 110-129 MG/DL HIGH RISK: >160 MG/DL >130 MG/DL *CHILDREN AND ADOLESCENTS REPRESENTS INDIVIDUALA AGED 2-19 YEARS EXCLUSIVE. Lym% 24.0 % 10.0-58.5 [facility] ([facility] NORMAL RANGES Age WBC RBC HGB HCT [...] HCT IS 5% LESS SOURCE FOR DATA: [employer] 1800 OPERATION MANUAL( AUTOMATED BLOOD COUNTS AND [...] DESIRABLE: <130 MG/DL <110 MG/DL BORDERLINE-HIGH RISK: 130- 159 MG/DL 110-129 MG/DL HIGH RISK: >160 MG/DL >130 MG/DL *CHILDREN AND ADOLESCENTS REPRESENTS INDIVIDUALA AGED 2-19 YEARS EXCLUSIVE. MXD% 7.4 % 0.1-24.0 [facility] ([facility] NORMAL RANGES Age WBC RBC HGB HCT [...] HCT IS 5% LESS SOURCE FOR DATA: [employer] 1800 OPERATION MANUAL( AUTOMATED BLOOD COUNTS AND [...] DESIRABLE: <130 MG/DL <110 MG/DL BORDERLINE-HIGH RISK: 130- 159 MG/DL 110-129 MG/DL HIGH RISK: >160 MG/DL >130 MG/DL *CHILDREN AND ADOLESCENTS REPRESENTS INDIVIDUALA AGED 2-19 YEARS EXCLUSIVE. Neut% 68.6 % 37.0-92.0 [facility] ([facility] NORMAL RANGES Age WBC RBC HGB HCT [...] HCT IS 5% LESS SOURCE FOR DATA: [employer] 1800 OPERATION MANUAL( AUTOMATED BLOOD COUNTS AND [...] DESIRABLE: <130 MG/DL <110 MG/DL BORDERLINE-HIGH RISK: 130- 159 MG/DL 110-129 MG/DL HIGH RISK: >160 MG/DL >130 MG/DL *CHILDREN AND ADOLESCENTS REPRESENTS INDIVIDUALA AGED 2-19 YEARS EXCLUSIVE. Neut# 3.9 % 2.0-7.8 [facility] ([facility] NORMAL RANGES Age WBC RBC HGB HCT [...] HCT IS 5% LESS SOURCE FOR DATA: [employer] 1800 OPERATION MANUAL( AUTOMATED BLOOD COUNTS AND [...] DESIRABLE: <130 MG/DL <110 MG/DL BORDERLINE-HIGH RISK: 130- 159 MG/DL 110-129 MG/DL HIGH RISK: >160 MG/DL >130 MG/DL *CHILDREN AND ADOLESCENTS REPRESENTS INDIVIDUALA AGED 2-19 YEARS EXCLUSIVE. Lym# 1.3 10E3/uL 0.6-4.1 [facility] ([facility] NORMAL RANGES Age WBC RBC HGB HCT [...] HCT IS 5% LESS SOURCE FOR DATA: [employer] 1800 OPERATION MANUAL( AUTOMATED BLOOD COUNTS AND [...] DESIRABLE: <130 MG/DL <110 MG/DL BORDERLINE-HIGH RISK: 130- 159 MG/DL 110-129 MG/DL HIGH RISK: >160 MG/DL >130 MG/DL *CHILDREN AND ADOLESCENTS REPRESENTS INDIVIDUALA AGED 2-19 YEARS EXCLUSIVE. MXD# 0.4 10E3/uL 0.0-1.8 [facility] ([facility] NORMAL RANGES Age WBC RBC HGB HCT [...] HCT IS 5% LESS SOURCE FOR DATA: [employer] 1800 OPERATION MANUAL( AUTOMATED BLOOD COUNTS AND [...] DESIRABLE: <130 MG/DL <110 MG/DL BORDERLINE-HIGH RISK: 130- 159 MG/DL 110-129 MG/DL HIGH RISK: >160 MG/DL >130 MG/DL *CHILDREN AND ADOLESCENTS REPRESENTS INDIVIDUALA AGED 2-19 YEARS EXCLUSIVE. MPV 8.7 fL 9.0-13.0 Below low normal [facility] ( [facility] NORMAL RANGES Age WBC RBC HGB HCT [...] HCT IS 5% LESS SOURCE FOR DATA: [employer] 1800 OPERATION MANUAL( AUTOMATED BLOOD COUNTS AND [...] DESIRABLE: <130 MG/DL <110 MG/DL BORDERLINE-HIGH RISK: 130- 159 MG/DL 110-129 MG/DL HIGH RISK: >160 MG/DL >130 MG/DL *CHILDREN AND ADOLESCENTS REPRESENTS INDIVIDUALA AGED 2-19 YEARS EXCLUSIVE. ID Date Data Source [id number] 04/17/2021 09:08:00 AM EDT [facility] ([facility] Name Value Range Interpretation Code Description Data Teagan rce(s) Supporting Document(s) Thyrotropin [Units/volume] in Serum or Plasma 1.461 ulU/mL 0.60-4.8 [facility] ([facility] ID Date Data Source [id number] 04/03/2021 12:00:00 PM EDT [facility] ([facility]) Name Value Range Interpretation Code Description Data Teagan rce(s) Supporting Document(s) TP Reflex HPV ASCUS Laboratory test result [facility] ([facility]) SPECIMEN PART------ A. Vaginal, ThinPrep Pap (Research And Evaluation Analyst) CYTOLOGY HX-------- Date of Last Menstrual Period: n Other Information: Hysterectomy Previous Normal Pap: 03/21/20 FINAL DIAGNOSIS---- INTERPRETATION: Negative for Intraepithelial Lesion or Malignancy. SPECIMEN ADEQUACY:Satisfactory for evaluation. TP Reflex HPV ASCUS Laboratory test result [facility] ([facility]) ID Date Data Source [id number] 10/10/2020 09:09:00 AM EDT [facility] ([facility] Name Value Range Interpretation Code Description Data Teagan rce(s) Supporting Document(s) Chol 196 mg/dL 0-200 [facility] ([facility] CHRONIC KIDNEY DISEASE STAGING PER NKF: MALE [...] DESIRABLE: <130 MG/DL <110 MG/DL BORDERLINE-HIGH RISK: 130- 159 MG/DL 110-129 MG/DL HIGH RISK: >160 MG/DL >130 MG/DL *CHILDREN AND ADOLESCENTS REPRESENTS INDIVIDUALA AGED 2-19 YEARS EXCLUSIVE. Cholesterol in HDL [Mass/volume] in Serum or Plasma 82 mg/dL 45-65 Above high normal [facility] ([facility] ) CHRONIC KIDNEY DISEASE STAGING PER NKF: MALE [...] DESIRABLE: <130 MG/DL <110 MG/DL BORDERLINE-HIGH RISK: 130- 159 MG/DL 110-129 MG/DL HIGH RISK: >160 MG/DL >130 MG/DL *CHILDREN AND ADOLESCENTS REPRESENTS INDIVIDUALA AGED 2-19 YEARS EXCLUSIVE. Trig 42 mg/dL 40-200 [facility] ([facility] CHRONIC KIDNEY DISEASE STAGING PER NKF: MALE [...] DESIRABLE: <130 MG/DL <110 MG/DL BORDERLINE-HIGH RISK: 130- 159 MG/DL 110-129 MG/DL HIGH RISK: >160 MG/DL >130 MG/DL *CHILDREN AND ADOLESCENTS REPRESENTS INDIVIDUALA AGED 2-19 YEARS EXCLUSIVE. Cho/HDL Ratio 2.4 CALC [facility] ([facility] CHRONIC KIDNEY DISEASE STAGING PER NKF: MALE [...] DESIRABLE: <130 MG/DL <110 MG/DL BORDERLINE-HIGH RISK: 130- 159 MG/DL 110-129 MG/DL HIGH RISK: >160 MG/DL >130 MG/DL *CHILDREN AND ADOLESCENTS REPRESENTS INDIVIDUALA AGED 2-19 YEARS EXCLUSIVE. LDL_C 106 Calc 75-129 [facility] ([facility] CHRONIC KIDNEY DISEASE STAGING PER NKF: MALE [...] DESIRABLE: <130 MG/DL <110 MG/DL BORDERLINE-HIGH RISK: 130- 159 MG/DL 110-129 MG/DL HIGH RISK: >160 MG/DL >130 MG/DL *CHILDREN AND ADOLESCENTS REPRESENTS INDIVIDUALA AGED 2-19 YEARS EXCLUSIVE. ID Date Data Source [id number] 10/10/2020 09:09:00 AM EDT [facility] ([facility] Name Value Range Interpretation Code Description Data Teagan rce(s) Supporting Document(s) Glu 92 mg/dL 70-110 [facility] ([facility] CHRONIC KIDNEY DISEASE STAGING PER NKF: MALE [...] DESIRABLE: <130 MG/DL <110 MG/DL BORDERLINE-HIGH RISK: 130- 159 MG/DL 110-129 MG/DL HIGH RISK: >160 MG/DL >130 MG/DL *CHILDREN AND ADOLESCENTS REPRESENTS INDIVIDUALA AGED 2-19 YEARS EXCLUSIVE. BUN 16 mg/dL 8-23 [facility] ([facility] CHRONIC KIDNEY DISEASE STAGING PER NKF: MALE [...] DESIRABLE: <130 MG/DL <110 MG/DL BORDERLINE-HIGH RISK: 130- 159 MG/DL 110-129 MG/DL HIGH RISK: >160 MG/DL >130 MG/DL *CHILDREN AND ADOLESCENTS REPRESENTS INDIVIDUALA AGED 2-19 YEARS EXCLUSIVE. Creat 0.8 mg/dL 0.5-1.0 [facility] CHRONIC KIDNEY DISEASE STAGING PER NKF: MALE [...] DESIRABLE: <130 MG/DL <110 MG/DL BORDERLINE-HIGH RISK: 130- 159 MG/DL 110-129 MG/DL HIGH RISK: >160 MG/DL >130 MG/DL *CHILDREN AND ADOLESCENTS REPRESENTS INDIVIDUALA AGED 2-19 YEARS EXCLUSIVE. BUN/Creatinine Ratio 20.8 CALC MEDENT ([facility] CHRONIC KIDNEY DISEASE STAGING PER NKF: MALE [...] DESIRABLE: <130 MG/DL <110 MG/DL BORDERLINE-HIGH RISK: 130- 159 MG/DL 110-129 MG/DL HIGH RISK: >160 MG/DL >130 MG/DL *CHILDREN AND ADOLESCENTS REPRESENTS INDIVIDUALA AGED 2-19 YEARS EXCLUSIVE. Na 138 mmol/L 136-145 [facility] ([facility] CHRONIC KIDNEY DISEASE STAGING PER NKF: MALE [...] DESIRABLE: <130 MG/DL <110 MG/DL BORDERLINE-HIGH RISK: 130- 159 MG/DL 110-129 MG/DL HIGH RISK: >160 MG/DL >130 MG/DL *CHILDREN AND ADOLESCENTS REPRESENTS INDIVIDUALA AGED 2-19 YEARS EXCLUSIVE. K 4.4 mmol/L 3.5-5.1 [facility] ([facility] CHRONIC KIDNEY DISEASE STAGING PER NKF: MALE [...] DESIRABLE: <130 MG/DL <110 MG/DL BORDERLINE-HIGH RISK: 130- 159 MG/DL 110-129 MG/DL HIGH RISK: >160 MG/DL >130 MG/DL *CHILDREN AND ADOLESCENTS REPRESENTS INDIVIDUALA AGED 2-19 YEARS EXCLUSIVE. CL 100.1 mmol/L 98.0-107.0 [facility] ([facility] CHRONIC KIDNEY DISEASE STAGING PER NKF: MALE [...] DESIRABLE: <130 MG/DL <110 MG/DL BORDERLINE-HIGH RISK: 130- 159 MG/DL 110-129 MG/DL HIGH RISK: >160 MG/DL >130 MG/DL *CHILDREN AND ADOLESCENTS REPRESENTS INDIVIDUALA AGED 2-19 YEARS EXCLUSIVE. Co2 23.5 mmol/L 22.0-29.0 [facility] ([facility] CHRONIC KIDNEY DISEASE STAGING PER NKF: MALE [...] DESIRABLE: <130 MG/DL <110 MG/DL BORDERLINE-HIGH RISK: 130- 159 MG/DL 110-129 MG/DL HIGH RISK: >160 MG/DL >130 MG/DL *CHILDREN AND ADOLESCENTS REPRESENTS INDIVIDUALA AGED 2-19 YEARS EXCLUSIVE. CA 9.8 mg/dL 8.6-10.2 [facility] ([facility] CHRONIC KIDNEY DISEASE STAGING PER NKF: MALE [...] DESIRABLE: <130 MG/DL <110 MG/DL BORDERLINE-HIGH RISK: 130- 159 MG/DL 110-129 MG/DL HIGH RISK: >160 MG/DL >130 MG/DL *CHILDREN AND ADOLESCENTS REPRESENTS INDIVIDUALA AGED 2-19 YEARS EXCLUSIVE. TP 7.6 g/dL 6.6-8.7 [facility] ([facility] CHRONIC KIDNEY DISEASE STAGING PER NKF: MALE [...] DESIRABLE: <130 MG/DL <110 MG/DL BORDERLINE-HIGH RISK: 130- 159 MG/DL 110-129 MG/DL HIGH RISK: >160 MG/DL >130 MG/DL *CHILDREN AND ADOLESCENTS REPRESENTS INDIVIDUALA AGED 2-19 YEARS EXCLUSIVE. Alb 4.8 g/dL 3.4-4.8 [facility] ([facility] CHRONIC KIDNEY DISEASE STAGING PER NKF: MALE [...] DESIRABLE: <130 MG/DL <110 MG/DL BORDERLINE-HIGH RISK: 130- 159 MG/DL 110-129 MG/DL HIGH RISK: >160 MG/DL >130 MG/DL *CHILDREN AND ADOLESCENTS REPRESENTS INDIVIDUALA AGED 2-19 YEARS EXCLUSIVE. A/G Ratio 1.7 CALC [facility] ([facility] CHRONIC KIDNEY DISEASE STAGING PER NKF: MALE [...] DESIRABLE: <130 MG/DL <110 MG/DL BORDERLINE-HIGH RISK: 130- 159 MG/DL 110-129 MG/DL HIGH RISK: >160 MG/DL >130 MG/DL *CHILDREN AND ADOLESCENTS REPRESENTS INDIVIDUALA AGED 2-19 YEARS EXCLUSIVE. Globulin 2.8 CALC [facility] ([facility] CHRONIC KIDNEY DISEASE STAGING PER NKF: MALE [...] DESIRABLE: <130 MG/DL <110 MG/DL BORDERLINE-HIGH RISK: 130- 159 MG/DL 110-129 MG/DL HIGH RISK: >160 MG/DL >130 MG/DL *CHILDREN AND ADOLESCENTS REPRESENTS INDIVIDUALA AGED 2-19 YEARS EXCLUSIVE. Alp 86.4 U/L 35-129 [facility] ([facility] CHRONIC KIDNEY DISEASE STAGING PER NKF: MALE [...] DESIRABLE: <130 MG/DL <110 MG/DL BORDERLINE-HIGH RISK: 130- 159 MG/DL 110-129 MG/DL HIGH RISK: >160 MG/DL >130 MG/DL *CHILDREN AND ADOLESCENTS REPRESENTS INDIVIDUALA AGED 2-19 YEARS EXCLUSIVE. Alt (SGPT) 28 U/L 0-41 [facility] ([facility] CHRONIC KIDNEY DISEASE STAGING PER NKF: MALE [...] DESIRABLE: <130 MG/DL <110 MG/DL BORDERLINE-HIGH RISK: 130- 159 MG/DL 110-129 MG/DL HIGH RISK: >160 MG/DL >130 MG/DL *CHILDREN AND ADOLESCENTS REPRESENTS INDIVIDUALA AGED 2-19 YEARS EXCLUSIVE. Ast (Sgot) 28 U/L 0-40 [facility] CHRONIC KIDNEY DISEASE STAGING PER NKF: MALE [...] DESIRABLE: <130 MG/DL <110 MG/DL BORDERLINE-HIGH RISK: 130- 159 MG/DL 110-129 MG/DL HIGH RISK: >160 MG/DL >130 MG/DL *CHILDREN AND ADOLESCENTS REPRESENTS INDIVIDUALA AGED 2-19 YEARS EXCLUSIVE. Osmolality-Calculated 276.6 CALC MED ENT ([facility] CHRONIC KIDNEY DISEASE STAGING PER NKF: MALE [...] DESIRABLE: <130 MG/DL <110 MG/DL BORDERLINE-HIGH RISK: 130- 159 MG/DL 110-129 MG/DL HIGH RISK: >160 MG/DL >130 MG/DL *CHILDREN AND ADOLESCENTS REPRESENTS INDIVIDUALA AGED 2-19 YEARS EXCLUSIVE. Tbili 0.22 mg/dL 0.0-1.2 [facility] ([facility] CHRONIC KIDNEY DISEASE STAGING PER NKF: MALE [...] DESIRABLE: <130 MG/DL <110 MG/DL BORDERLINE-HIGH RISK: 130- 159 MG/DL 110-129 MG/DL HIGH RISK: >160 MG/DL >130 MG/DL *CHILDREN AND ADOLESCENTS REPRESENTS INDIVIDUALA AGED 2-19 YEARS EXCLUSIVE. Anion Gap 19 mmol/L [facility] CHRONIC KIDNEY DISEASE STAGING PER NKF: MALE [...] DESIRABLE: <130 MG/DL <110 MG/DL BORDERLINE-HIGH RISK: 130- 159 MG/DL 110-129 MG/DL HIGH RISK: >160 MG/DL >130 MG/DL *CHILDREN AND ADOLESCENTS REPRESENTS INDIVIDUALA AGED 2-19 YEARS EXCLUSIVE. eGFR 100 # [facility] ( [facility] CHRONIC KIDNEY DISEASE STAGING PER NKF: MALE [...] DESIRABLE: <130 MG/DL <110 MG/DL BORDERLINE-HIGH RISK: 130- 159 MG/DL 110-129 MG/DL HIGH RISK: >160 MG/DL >130 MG/DL *CHILDREN AND ADOLESCENTS REPRESENTS INDIVIDUALA AGED 2-19 YEARS EXCLUSIVE. eGFR Non-Afr. [place] 86 # [facility] ([facility] CHRONIC KIDNEY DISEASE STAGING PER NKF: MALE [...] DESIRABLE: <130 MG/DL <110 MG/DL BORDERLINE-HIGH RISK: 130- 159 MG/DL 110-129 MG/DL HIGH RISK: >160 MG/DL >130 MG/DL *CHILDREN AND ADOLESCENTS REPRESENTS INDIVIDUALA AGED 2-19 YEARS EXCLUSIVE. ID Date Data Source [id number] 08/04/2020 12:00:00 AM EST [facility] Patient Name: FROY VELAZQUEZ Date of : 1970[place] [address] Date of Exam: 1P#: Fax: [phone] EXAM: US EXTREMITY, NON-VASCULAR (ST MASS) LIMITEDCLINICAL INFORMATION: Left axilla lump.Real-time sonographic evaluation of the left axillary region was performedat the site of a reported palpable lump. No cystic or solid mass is seen.No fluid collection is seen.IMPRESSION:No sonographic evidence of mass or other abnormality at the site of thereported palpable abnormality in the left axilla.Accredited by the [place] in General Ultrasound.INO Koroma/Marina pedraza for referring JEMAL VELAZQUEZ to our office. Electronically Signed - GEORGIA GRAY MD 08/05/20 18:04 Name Value Range Interpretation Code Description Data Teagan rce(s) Supporting Document(s) ID Date Data Source [id number] 03/21/2020 12:00:00 PM EDT [facility] ([facility]) Name Value Range Interpretation Code Description Data Teagan rce(s) Supporting Document(s) TP Reflex HPV ASCUS Laboratory test result [facility] ([facility]) TP Reflex HPV ASCUS Laboratory test result [facility] ([facility]) SPECIMEN PART------ A. Vaginal, ThinPrep Pap (Research And Evaluation Analyst) CYTOLOGY HX-------- Other Information:Previous Normal Pap: 02/02/19 Hysterectomy FINAL DIAGNOSIS---- INTERPRETATION: Negative for Intraepithelial Lesion or Malignancy. SPECIMEN ADEQUACY:Satisfactory for evaluation. ADDITIONAL FINDINGS:Fungal organisms consistent with Michelle spp. ID Date Data Source [id number] 02/29/2020 11:22:00 AM EDT [facility] ([facility] Name Value Range Interpretation Code Description Data Teagan rce(s) Supporting Document(s) Thyrotropin [Units/volume] in Serum or Plasma 1.703 ulU/mL 0.60-4.8 [facility] ([facility] ID Date Data Source [id number] 02/29/2020 11:22:00 AM EDT [facility] ([facility] Name Value Range Interpretation Code Description Data Teagan rce(s) Supporting Document(s) Chol 208 mg/dL 0-200 Above high normal [facility] ([facility] NORMAL RANGES Age WBC RBC HGB HCT [...] HCT IS 5% LESS SOURCE FOR DATA: [employer] DYN 1800 OPERATION MANUAL( AUTOMATED BLOOD COUNTS [...] DESIRABLE: <130 MG/DL <110 MG/DL BORDERLINE-HIGH RISK: 130- 159 MG/DL 110-129 MG/DL HIGH RISK: >160 MG/DL >130 MG/DL *CHILDREN AND ADOLESCENTS REPRESENTS INDIVIDUALA AGED 2-19 YEARS EXCLUSIVE. Trig 47 mg/dL 40-200 [facility] ([facility] NORMAL RANGES Age WBC RBC HGB HCT [...] HCT IS 5% LESS SOURCE FOR DATA: [employer] 1800 OPERATION MANUAL( AUTOMATED BLOOD COUNTS AND [...] DESIRABLE: <130 MG/DL <110 MG/DL BORDERLINE-HIGH RISK: 130- 159 MG/DL 110-129 MG/DL HIGH RISK: >160 MG/DL >130 MG/DL *CHILDREN AND ADOLESCENTS REPRESENTS INDIVIDUALA AGED 2-19 YEARS EXCLUSIVE. Cholesterol in HDL [Mass/volume] in Serum or Plasma 81 mg/dL 45-65 Above high normal [facility] NORMAL RANGES Age WBC RBC HGB HCT [...] HCT IS 5% LESS SOURCE FOR DATA: [employer] 1800 OPERATION MANUAL( AUTOMATED BLOOD COUNTS AND [...] DESIRABLE: <130 MG/DL <110 MG/DL BORDERLINE-HIGH RISK: 130- 159 MG/DL 110-129 MG/DL HIGH RISK: >160 MG/DL >130 MG/DL *CHILDREN AND ADOLESCENTS REPRESENTS INDIVIDUALA AGED 2-19 YEARS EXCLUSIVE. LDL_C 117 Calc 75-129 [facility] NORMAL RANGES Age WBC RBC HGB HCT [...] HCT IS 5% LESS SOURCE FOR DATA: [employer] 1800 OPERATION MANUAL( AUTOMATED BLOOD COUNTS AND [...] DESIRABLE: <130 MG/DL <110 MG/DL BORDERLINE-HIGH RISK: 130- 159 MG/DL 110-129 MG/DL HIGH RISK: >160 MG/DL >130 MG/DL *CHILDREN AND ADOLESCENTS REPRESENTS INDIVIDUALA AGED 2-19 YEARS EXCLUSIVE. Cho/HDL Ratio 2.6 CALC [facility] ([facility] NORMAL RANGES Age WBC RBC HGB HCT [...] HCT IS 5% LESS SOURCE FOR DATA: [employer] 1800 OPERATION MANUAL( AUTOMATED BLOOD COUNTS AND [...] DESIRABLE: <130 MG/DL <110 MG/DL BORDERLINE-HIGH RISK: 130- 159 MG/DL 110-129 MG/DL HIGH RISK: >160 MG/DL >130 MG/DL *CHILDREN AND ADOLESCENTS REPRESENTS INDIVIDUALA AGED 2-19 YEARS EXCLUSIVE. ID Date Data Source [id number] 02/29/2020 11:22:00 AM EDT [facility] ([facility] Name Value Range Interpretation Code Description Data Teagan rce(s) Supporting Document(s) Creat 0.7 mg/dL 0.5-1.0 [facility] ([facility] NORMAL RANGES Age WBC RBC HGB HCT [...] HCT IS 5% LESS SOURCE FOR DATA: [employer] DYN 1800 OPERATION MANUAL( AUTOMATED BLOOD COUNTS [...] DESIRABLE: <130 MG/DL <110 MG/DL BORDERLINE-HIGH RISK: 130- 159 MG/DL 110-129 MG/DL HIGH RISK: >160 MG/DL >130 MG/DL *CHILDREN AND ADOLESCENTS REPRESENTS INDIVIDUALA AGED 2-19 YEARS EXCLUSIVE. Glu 96 mg/dL 70-110 [facility] ([facility] NORMAL RANGES Age WBC RBC HGB HCT [...] HCT IS 5% LESS SOURCE FOR DATA: [employer] 1800 OPERATION MANUAL( AUTOMATED BLOOD COUNTS AND [...] DESIRABLE: <130 MG/DL <110 MG/DL BORDERLINE-HIGH RISK: 130- 159 MG/DL 110-129 MG/DL HIGH RISK: >160 MG/DL >130 MG/DL *CHILDREN AND ADOLESCENTS REPRESENTS INDIVIDUALA AGED 2-19 YEARS EXCLUSIVE. BUN 11 mg/dL 8-23 [facility] ([facility] NORMAL RANGES Age WBC RBC HGB HCT [...] HCT IS 5% LESS SOURCE FOR DATA: [employer] 1800 OPERATION MANUAL( AUTOMATED BLOOD COUNTS AND [...] DESIRABLE: <130 MG/DL <110 MG/DL BORDERLINE-HIGH RISK: 130- 159 MG/DL 110-129 MG/DL HIGH RISK: >160 MG/DL >130 MG/DL *CHILDREN AND ADOLESCENTS REPRESENTS INDIVIDUALA AGED 2-19 YEARS EXCLUSIVE. BUN/Creatinine Ratio 15.2 CALC [facility] ([facility] NORMAL RANGES Age WBC RBC HGB HCT [...] HCT IS 5% LESS SOURCE FOR DATA: [employer] 1800 OPERATION MANUAL( AUTOMATED BLOOD COUNTS AND [...] DESIRABLE: <130 MG/DL <110 MG/DL BORDERLINE-HIGH RISK: 130- 159 MG/DL 110-129 MG/DL HIGH RISK: >160 MG/DL >130 MG/DL *CHILDREN AND ADOLESCENTS REPRESENTS INDIVIDUALA AGED 2-19 YEARS EXCLUSIVE. Na 140 mmol/L 136-145 [facility] ([facility] NORMAL RANGES Age WBC RBC HGB HCT [...] HCT IS 5% LESS SOURCE FOR DATA: [employer] 1800 OPERATION MANUAL( AUTOMATED BLOOD COUNTS AND [...] DESIRABLE: <130 MG/DL <110 MG/DL BORDERLINE-HIGH RISK: 130- 159 MG/DL 110-129 MG/DL HIGH RISK: >160 MG/DL >130 MG/DL *CHILDREN AND ADOLESCENTS REPRESENTS INDIVIDUALA AGED 2-19 YEARS EXCLUSIVE. K 4.1 mmol/L 3.5-5.1 [facility] ([facility] NORMAL RANGES Age WBC RBC HGB HCT [...] HCT IS 5% LESS SOURCE FOR DATA: [employer] 1800 OPERATION MANUAL( AUTOMATED BLOOD COUNTS AND [...] DESIRABLE: <130 MG/DL <110 MG/DL BORDERLINE-HIGH RISK: 130- 159 MG/DL 110-129 MG/DL HIGH RISK: >160 MG/DL >130 MG/DL *CHILDREN AND ADOLESCENTS REPRESENTS INDIVIDUALA AGED 2-19 YEARS EXCLUSIVE. CL 101.5 mmol/L 98.0-107.0 [facility] NORMAL RANGES Age WBC RBC HGB HCT [...] HCT IS 5% LESS SOURCE FOR DATA: [employer] 1800 OPERATION MANUAL( AUTOMATED BLOOD COUNTS AND [...] DESIRABLE: <130 MG/DL <110 MG/DL BORDERLINE-HIGH RISK: 130- 159 MG/DL 110-129 MG/DL HIGH RISK: >160 MG/DL >130 MG/DL *CHILDREN AND ADOLESCENTS REPRESENTS INDIVIDUALA AGED 2-19 YEARS EXCLUSIVE. Co2 25.1 mmol/L 22.0-29.0 [facility] ([facility] NORMAL RANGES Age WBC RBC HGB HCT [...] HCT IS 5% LESS SOURCE FOR DATA: [employer] 1800 OPERATION MANUAL( AUTOMATED BLOOD COUNTS AND [...] DESIRABLE: <130 MG/DL <110 MG/DL BORDERLINE-HIGH RISK: 130- 159 MG/DL 110-129 MG/DL HIGH RISK: >160 MG/DL >130 MG/DL *CHILDREN AND ADOLESCENTS REPRESENTS INDIVIDUALA AGED 2-19 YEARS EXCLUSIVE. Alb 4.7 g/dL 3.4-4.8 [facility] NORMAL RANGES Age WBC RBC HGB HCT [...] HCT IS 5% LESS SOURCE FOR DATA: [employer] 1800 OPERATION MANUAL( AUTOMATED BLOOD COUNTS AND [...] DESIRABLE: <130 MG/DL <110 MG/DL BORDERLINE-HIGH RISK: 130- 159 MG/DL 110-129 MG/DL HIGH RISK: >160 MG/DL >130 MG/DL *CHILDREN AND ADOLESCENTS REPRESENTS INDIVIDUALA AGED 2-19 YEARS EXCLUSIVE. TP 7.1 g/dL 6.6-8.7 [facility] ([facility] NORMAL RANGES Age WBC RBC HGB HCT [...] HCT IS 5% LESS SOURCE FOR DATA: [employer] DYN 1800 OPERATION MANUAL( AUTOMATED BLOOD COUNTS [...] DESIRABLE: <130 MG/DL <110 MG/DL BORDERLINE-HIGH RISK: 130- 159 MG/DL 110-129 MG/DL HIGH RISK: >160 MG/DL >130 MG/DL *CHILDREN AND ADOLESCENTS REPRESENTS INDIVIDUALA AGED 2-19 YEARS EXCLUSIVE. CA 9.6 mg/dL 8.6-10.2 [facility] ([facility] NORMAL RANGES Age WBC RBC HGB HCT [...] HCT IS 5% LESS SOURCE FOR DATA: [employer] 1800 OPERATION MANUAL( AUTOMATED BLOOD COUNTS AND [...] DESIRABLE: <130 MG/DL <110 MG/DL BORDERLINE-HIGH RISK: 130- 159 MG/DL 110-129 MG/DL HIGH RISK: >160 MG/DL >130 MG/DL *CHILDREN AND ADOLESCENTS REPRESENTS INDIVIDUALA AGED 2-19 YEARS EXCLUSIVE. Globulin 2.4 CALC [facility] ([facility] NORMAL RANGES Age WBC RBC HGB HCT [...] HCT IS 5% LESS SOURCE FOR DATA: [employer] 1800 OPERATION MANUAL( AUTOMATED BLOOD COUNTS AND [...] DESIRABLE: <130 MG/DL <110 MG/DL BORDERLINE-HIGH RISK: 130- 159 MG/DL 110-129 MG/DL HIGH RISK: >160 MG/DL >130 MG/DL *CHILDREN AND ADOLESCENTS REPRESENTS INDIVIDUALA AGED 2-19 YEARS EXCLUSIVE. A/G Ratio 1.9 CALC [facility] ([facility] NORMAL RANGES Age WBC RBC HGB HCT [...] HCT IS 5% LESS SOURCE FOR DATA: [employer] 1800 OPERATION MANUAL( AUTOMATED BLOOD COUNTS AND [...] DESIRABLE: <130 MG/DL <110 MG/DL BORDERLINE-HIGH RISK: 130- 159 MG/DL 110-129 MG/DL HIGH RISK: >160 MG/DL >130 MG/DL *CHILDREN AND ADOLESCENTS REPRESENTS INDIVIDUALA AGED 2-19 YEARS EXCLUSIVE. Alp 79.2 U/L 35-129 [facility] ([facility] NORMAL RANGES Age WBC RBC HGB HCT [...] HCT IS 5% LESS SOURCE FOR DATA: [employer] 1800 OPERATION MANUAL( AUTOMATED BLOOD COUNTS AND [...] DESIRABLE: <130 MG/DL <110 MG/DL BORDERLINE-HIGH RISK: 130- 159 MG/DL 110-129 MG/DL HIGH RISK: >160 MG/DL >130 MG/DL *CHILDREN AND ADOLESCENTS REPRESENTS INDIVIDUALA AGED 2-19 YEARS EXCLUSIVE. Tbili 0.31 mg/dL 0.0-1.2 [facility] ([facility] NORMAL RANGES Age WBC RBC HGB HCT [...] HCT IS 5% LESS SOURCE FOR DATA: [employer] 1800 OPERATION MANUAL( AUTOMATED BLOOD COUNTS AND [...] DESIRABLE: <130 MG/DL <110 MG/DL BORDERLINE-HIGH RISK: 130- 159 MG/DL 110-129 MG/DL HIGH RISK: >160 MG/DL >130 MG/DL *CHILDREN AND ADOLESCENTS REPRESENTS INDIVIDUALA AGED 2-19 YEARS EXCLUSIVE. Ast (Sgot) 22 U/L 0-40 [facility] NORMAL RANGES Age WBC RBC HGB HCT [...] HCT IS 5% LESS SOURCE FOR DATA: [employer] 1800 OPERATION MANUAL( AUTOMATED BLOOD COUNTS AND [...] DESIRABLE: <130 MG/DL <110 MG/DL BORDERLINE-HIGH RISK: 130- 159 MG/DL 110-129 MG/DL HIGH RISK: >160 MG/DL >130 MG/DL *CHILDREN AND ADOLESCENTS REPRESENTS INDIVIDUALA AGED 2-19 YEARS EXCLUSIVE. Alt (SGPT) 22 U/L 0-41 [facility] ([facility] NORMAL RANGES Age WBC RBC HGB HCT [...] HCT IS 5% LESS SOURCE FOR DATA: [employer] 1800 OPERATION MANUAL( AUTOMATED BLOOD COUNTS AND [...] DESIRABLE: <130 MG/DL <110 MG/DL BORDERLINE-HIGH RISK: 130- 159 MG/DL 110-129 MG/DL HIGH RISK: >160 MG/DL >130 MG/DL *CHILDREN AND ADOLESCENTS REPRESENTS INDIVIDUALA AGED 2-19 YEARS EXCLUSIVE. eGFR 118 # [facility] ( [facility] NORMAL RANGES Age WBC RBC HGB HCT [...] HCT IS 5% LESS SOURCE FOR DATA: [employer] 1800 OPERATION MANUAL( AUTOMATED BLOOD COUNTS AND [...] DESIRABLE: <130 MG/DL <110 MG/DL BORDERLINE-HIGH RISK: 130- 159 MG/DL 110-129 MG/DL HIGH RISK: >160 MG/DL >130 MG/DL *CHILDREN AND ADOLESCENTS REPRESENTS INDIVIDUALA AGED 2-19 YEARS EXCLUSIVE. Anion Gap 18 mmol/L [facility] ([facility] NORMAL RANGES Age WBC RBC HGB HCT [...] HCT IS 5% LESS SOURCE FOR DATA: [employer] 1800 OPERATION MANUAL( AUTOMATED BLOOD COUNTS AND [...] DESIRABLE: <130 MG/DL <110 MG/DL BORDERLINE-HIGH RISK: 130- 159 MG/DL 110-129 MG/DL HIGH RISK: >160 MG/DL >130 MG/DL *CHILDREN AND ADOLESCENTS REPRESENTS INDIVIDUALA AGED 2-19 YEARS EXCLUSIVE. Osmolality-Calculated 279.5 CALC [facility] ([facility] NORMAL RANGES Age WBC RBC HGB HCT [...] HCT IS 5% LESS SOURCE FOR DATA: [employer] 1800 OPERATION MANUAL( AUTOMATED BLOOD COUNTS AND [...] DESIRABLE: <130 MG/DL <110 MG/DL BORDERLINE-HIGH RISK: 130- 159 MG/DL 110-129 MG/DL HIGH RISK: >160 MG/DL >130 MG/DL *CHILDREN AND ADOLESCENTS REPRESENTS INDIVIDUALA AGED 2-19 YEARS EXCLUSIVE. eGFR Non-Afr. [place] 102 # [facility] ([facility] NORMAL RANGES Age WBC RBC HGB HCT [...] HCT IS 5% LESS SOURCE FOR DATA: [employer] 1800 OPERATION MANUAL( AUTOMATED BLOOD COUNTS AND [...] DESIRABLE: <130 MG/DL <110 MG/DL BORDERLINE-HIGH RISK: 130- 159 MG/DL 110-129 MG/DL HIGH RISK: >160 MG/DL >130 MG/DL *CHILDREN AND ADOLESCENTS REPRESENTS INDIVIDUALA AGED 2-19 YEARS EXCLUSIVE. ID Date Data Source [id number] 02/29/2020 11:22:00 AM EDT [facility] ([facility] Name Value Range Interpretation Code Description Data Teagan rce(s) Supporting Document(s) WBC 4.9 10E3/uL 4.1-10.9 [facility] ([facility] NORMAL RANGES Age WBC RBC HGB HCT [...] HCT IS 5% LESS SOURCE FOR DATA: [employer] 1800 OPERATION MANUAL( AUTOMATED BLOOD COUNTS AND [...] DESIRABLE: <130 MG/DL <110 MG/DL BORDERLINE-HIGH RISK: 130- 159 MG/DL 110-129 MG/DL HIGH RISK: >160 MG/DL >130 MG/DL *CHILDREN AND ADOLESCENTS REPRESENTS INDIVIDUALA AGED 2-19 YEARS EXCLUSIVE. RBC 4.49 10E6/uL 4.20-6.30 [facility] ([facility] NORMAL RANGES Age WBC RBC HGB HCT [...] HCT IS 5% LESS SOURCE FOR DATA: [employer] 1800 OPERATION MANUAL( AUTOMATED BLOOD COUNTS AND [...] DESIRABLE: <130 MG/DL <110 MG/DL BORDERLINE-HIGH RISK: 130- 159 MG/DL 110-129 MG/DL HIGH RISK: >160 MG/DL >130 MG/DL *CHILDREN AND ADOLESCENTS REPRESENTS INDIVIDUALA AGED 2-19 YEARS EXCLUSIVE. HGB 13.8 g/dL 12.0-18.0 [facility] ([facility] NORMAL RANGES Age WBC RBC HGB HCT [...] HCT IS 5% LESS SOURCE FOR DATA: [employer] 1800 OPERATION MANUAL( AUTOMATED BLOOD COUNTS AND [...] DESIRABLE: <130 MG/DL <110 MG/DL BORDERLINE-HIGH RISK: 130- 159 MG/DL 110-129 MG/DL HIGH RISK: >160 MG/DL >130 MG/DL *CHILDREN AND ADOLESCENTS REPRESENTS INDIVIDUALA AGED 2-19 YEARS EXCLUSIVE. MCV 90.9 fL 80.0-97.0 [facility] ([facility] NORMAL RANGES Age WBC RBC HGB HCT [...] HCT IS 5% LESS SOURCE FOR DATA: [employer] DYN 1800 OPERATION MANUAL( AUTOMATED BLOOD COUNTS [...] DESIRABLE: <130 MG/DL <110 MG/DL BORDERLINE-HIGH RISK: 130- 159 MG/DL 110-129 MG/DL HIGH RISK: >160 MG/DL >130 MG/DL *CHILDREN AND ADOLESCENTS REPRESENTS INDIVIDUALA AGED 2-19 YEARS EXCLUSIVE. HCT 40.8 % 37.0-51.0 [facility] ([facility] NORMAL RANGES Age WBC RBC HGB HCT [...] HCT IS 5% LESS SOURCE FOR DATA: [employer] 1800 OPERATION MANUAL( AUTOMATED BLOOD COUNTS AND [...] DESIRABLE: <130 MG/DL <110 MG/DL BORDERLINE-HIGH RISK: 130- 159 MG/DL 110-129 MG/DL HIGH RISK: >160 MG/DL >130 MG/DL *CHILDREN AND ADOLESCENTS REPRESENTS INDIVIDUALA AGED 2-19 YEARS EXCLUSIVE. MCH 30.7 pg 26.0-32.0 [facility] ([facility] NORMAL RANGES Age WBC RBC HGB HCT [...] HCT IS 5% LESS SOURCE FOR DATA: [employer] DYN 1800 OPERATION MANUAL( AUTOMATED BLOOD COUNTS [...] DESIRABLE: <130 MG/DL <110 MG/DL BORDERLINE-HIGH RISK: 130- 159 MG/DL 110-129 MG/DL HIGH RISK: >160 MG/DL >130 MG/DL *CHILDREN AND ADOLESCENTS REPRESENTS INDIVIDUALA AGED 2-19 YEARS EXCLUSIVE. PLT 312 10E3/uL 140-440 [facility] ([facility] NORMAL RANGES Age WBC RBC HGB HCT [...] HCT IS 5% LESS SOURCE FOR DATA: [employer] 1800 OPERATION MANUAL( AUTOMATED BLOOD COUNTS AND [...] DESIRABLE: <130 MG/DL <110 MG/DL BORDERLINE-HIGH RISK: 130- 159 MG/DL 110-129 MG/DL HIGH RISK: >160 MG/DL >130 MG/DL *CHILDREN AND ADOLESCENTS REPRESENTS INDIVIDUALA AGED 2-19 YEARS EXCLUSIVE. MCHC 33.8 g/dL 31.0-36.0 [facility] NORMAL RANGES Age WBC RBC HGB HCT [...] HCT IS 5% LESS SOURCE FOR DATA: [employer] 1800 OPERATION MANUAL( AUTOMATED BLOOD COUNTS AND [...] DESIRABLE: <130 MG/DL <110 MG/DL BORDERLINE-HIGH RISK: 130- 159 MG/DL 110-129 MG/DL HIGH RISK: >160 MG/DL >130 MG/DL *CHILDREN AND ADOLESCENTS REPRESENTS INDIVIDUALA AGED 2-19 YEARS EXCLUSIVE. Neut% 62.4 % 37.0-92.0 [facility] ([facility] NORMAL RANGES Age WBC RBC HGB HCT [...] HCT IS 5% LESS SOURCE FOR DATA: [employer] DYN 1800 OPERATION MANUAL( AUTOMATED BLOOD COUNTS [...] DESIRABLE: <130 MG/DL <110 MG/DL BORDERLINE-HIGH RISK: 130- 159 MG/DL 110-129 MG/DL HIGH RISK: >160 MG/DL >130 MG/DL *CHILDREN AND ADOLESCENTS REPRESENTS INDIVIDUALA AGED 2-19 YEARS EXCLUSIVE. Lym% 29.2 % 10.0-58.5 [facility] ([facility] NORMAL RANGES Age WBC RBC HGB HCT [...] HCT IS 5% LESS SOURCE FOR DATA: [employer] 1800 OPERATION MANUAL( AUTOMATED BLOOD COUNTS AND [...] DESIRABLE: <130 MG/DL <110 MG/DL BORDERLINE-HIGH RISK: 130- 159 MG/DL 110-129 MG/DL HIGH RISK: >160 MG/DL >130 MG/DL *CHILDREN AND ADOLESCENTS REPRESENTS INDIVIDUALA AGED 2-19 YEARS EXCLUSIVE. RDW-CV 12.8 % 11.5-14.5 [facility] ([facility] NORMAL RANGES Age WBC RBC HGB HCT [...] HCT IS 5% LESS SOURCE FOR DATA: [employer] 1800 OPERATION MANUAL( AUTOMATED BLOOD COUNTS AND [...] DESIRABLE: <130 MG/DL <110 MG/DL BORDERLINE-HIGH RISK: 130- 159 MG/DL 110-129 MG/DL HIGH RISK: >160 MG/DL >130 MG/DL *CHILDREN AND ADOLESCENTS REPRESENTS INDIVIDUALA AGED 2-19 YEARS EXCLUSIVE. MXD% 8.4 % 0.1-24.0 [facility] NORMAL RANGES Age WBC RBC HGB HCT [...] HCT IS 5% LESS SOURCE FOR DATA: [employer] 1800 OPERATION MANUAL( AUTOMATED BLOOD COUNTS AND [...] DESIRABLE: <130 MG/DL <110 MG/DL BORDERLINE-HIGH RISK: 130- 159 MG/DL 110-129 MG/DL HIGH RISK: >160 MG/DL >130 MG/DL *CHILDREN AND ADOLESCENTS REPRESENTS INDIVIDUALA AGED 2-19 YEARS EXCLUSIVE. Lym# 1.4 10E3/uL 0.6-4.1 [facility] ([facility] NORMAL RANGES Age WBC RBC HGB HCT [...] HCT IS 5% LESS SOURCE FOR DATA: [employer] 1800 OPERATION MANUAL( AUTOMATED BLOOD COUNTS AND [...] DESIRABLE: <130 MG/DL <110 MG/DL BORDERLINE-HIGH RISK: 130- 159 MG/DL 110-129 MG/DL HIGH RISK: >160 MG/DL >130 MG/DL *CHILDREN AND ADOLESCENTS REPRESENTS INDIVIDUALA AGED 2-19 YEARS EXCLUSIVE. Neut# 3.1 % 2.0-7.8 [facility] ([facility] NORMAL RANGES Age WBC RBC HGB HCT [...] HCT IS 5% LESS SOURCE FOR DATA: [employer] DYN 1800 OPERATION MANUAL( AUTOMATED BLOOD COUNTS [...] DESIRABLE: <130 MG/DL <110 MG/DL BORDERLINE-HIGH RISK: 130- 159 MG/DL 110-129 MG/DL HIGH RISK: >160 MG/DL >130 MG/DL *CHILDREN AND ADOLESCENTS REPRESENTS INDIVIDUALA AGED 2-19 YEARS EXCLUSIVE. MXD# 0.4 10E3/uL 0.0-1.8 [facility] ([facility] NORMAL RANGES Age WBC RBC HGB HCT [...] HCT IS 5% LESS SOURCE FOR DATA: [employer] 1800 OPERATION MANUAL( AUTOMATED BLOOD COUNTS AND [...] DESIRABLE: <130 MG/DL <110 MG/DL BORDERLINE-HIGH RISK: 130- 159 MG/DL 110-129 MG/DL HIGH RISK: >160 MG/DL >130 MG/DL *CHILDREN AND ADOLESCENTS REPRESENTS INDIVIDUALA AGED 2-19 YEARS EXCLUSIVE. MPV 9.1 fL 9.0-13.0 [facility] ([facility] NORMAL RANGES Age WBC RBC HGB HCT [...] HCT IS 5% LESS SOURCE FOR DATA: [employer] 1800 OPERATION MANUAL( AUTOMATED BLOOD COUNTS AND [...] DESIRABLE: <130 MG/DL <110 MG/DL BORDERLINE-HIGH RISK: 130- 159 MG/DL 110-129 MG/DL HIGH RISK: >160 MG/DL >130 MG/DL *CHILDREN AND ADOLESCENTS REPRESENTS INDIVIDUALA AGED 2-19 YEARS EXCLUSIVE. Procedure Social History Code Duration Value Status Description Data Source(s ) Smoking 04/03/2021 12:00:00 AM EDT Patient has never smoked co mpleted Patient has never smoked [facility] ([facility]) Vital Signs ID Date Data Source UNK Name Value Range Interpretation Code Description Data Source(s) Body weight 173.00 [lb_av] 173.00 [lb_av] MED[facility] T ([facility] Body temperature 98.2 [degF] 98.2 [degF] [facility] ([facility] Heart rate 78 /min 78 /min [facility] ([facility] Respiratory rate 16 /min 16 /min [facility] ( [facility] Body height 63.50 [in_i] 63.50 [in_i] [facility] ([facility] 5'3.50" [place] body weight 115 [lb_av] 115 [lb_av] MEDEN T ([facility] Body mass index (BMI) [Ratio] 30.2 kg/m2 30.2 k g/m2 [facility] ([facility] Oxygen saturation in Arterial blood by Pulse oximetry 97 % 97 % [facility] ([facility] Diastolic blood pressure 70 mm[Hg] 70 mm[Hg] [facility] ([facility] Systolic blood pressure 102 mm[Hg] 102 mm[Hg] M EDENT ([facility] Body weight 174.00 [lb_av] 174.00 [lb_av] MED[facility] T ([facility] Body mass index (BMI) [Ratio] 29.9 kg/m2 29.9 k g/m2 [facility] ([facility] Body surface area Derived from formula 1.84 m2 1.84 m2 [facility] ([facility]) Systolic blood pressure 122 mm[Hg] 122 mm[Hg] M EDENT ([facility]) Diastolic blood pressure 68 mm[Hg] 68 mm[Hg] [facility] ([facility] Body height 64 [in_i] 64 [in_i] [facility] ([facility]) 5'4" Body surface area Derived from formula 1.82 m2 1.82 m2 [facility] ([facility]) Systolic blood pressure 108 mm[Hg] 108 mm[Hg] M EDENT ([facility]) Diastolic blood pressure 72 mm[Hg] 72 mm[Hg] [facility] ([facility]) Body height 63 [in_i] 63 [in_i] [facility] ([facility]) 5'3" Body weight 173.00 [lb_av] 173.00 [lb_av] MEDEN T ([facility]) Body mass index (BMI) [Ratio] 30.6 kg/m2 30.6 k g/m2 [facility] ([facility]) [place] body weight 115 [lb_av] 115 [lb_av] MEDEN T ([facility]) Body weight 78.473 kg 78.473 kg [facility] ([facility]) Heart rate 82 /min 82 /min [facility] ([facility] Systolic blood pressure 112 mm[Hg] 112 mm[Hg] M EDENT ([facility] Body height 63.50 [in_i] 63.50 [in_i] [facility] ([facility] 5'3.50" Body weight 170.00 [lb_av] 170.00 [lb_av] MEDEN T ([facility] Respiratory rate 16 /min 16 /min [facility] ( [facility] [place] body weight 115 [lb_av] 115 [lb_av] [facility] T ([facility] Diastolic blood pressure 72 mm[Hg] 72 mm[Hg] [facility] ([facility] Body temperature 97.3 [degF] 97.3 [degF] [facility] ([facility] Body mass index (BMI) [Ratio] 29.6 kg/m2 29.6 k g/m2 [facility] ([facility] Oxygen saturation in Arterial blood by Pulse oximetry 98 % 98 % [facility] ([facility] Diastolic blood pressure 74 mm[Hg] 74 mm[Hg] [facility] ([facility] Body temperature 97.3 [degF] 97.3 [degF] [facility] ([facility] Heart rate 88 /min 88 /min [facility] ([facility] Respiratory rate 16 /min 16 /min [facility] ( [facility] Body height 63.50 [in_i] 63.50 [in_i] [facility] ([facility] 5'3.50" Body weight 170.00 [lb_av] 170.00 [lb_av] MEDEN T ([facility] [place] body weight 115 [lb_av] 115 [lb_av] MEDEN T ([facility] Body mass index (BMI) [Ratio] 29.6 kg/m2 29.6 k g/m2 [facility] ([facility] Oxygen saturation in Arterial blood by Pulse oximetry 98 % 98 % [facility] ([facility] Systolic blood pressure 112 mm[Hg] 112 mm[Hg] M EDENT ([facility] Body temperature 97.0 [degF] 97.0 [degF] [facility] ([facility] Heart rate 97 /min 97 /min [facility] ([facility] Oxygen saturation in Arterial blood by Pulse oximetry 98 % 98 % [facility] ( [facility] Systolic blood pressure 116 mm[Hg] 116 mm[Hg] M EDENT ([facility] Diastolic blood pressure 84 mm[Hg] 84 mm[Hg] [facility] ([facility] Respiratory rate 16 /min 16 /min [facility] ( [facility] Body height 63.50 [in_i] 63.50 [in_i] [facility] ([facility] 5'3.50" Body weight 169.00 [lb_av] 169.00 [lb_av] MEDEN T ([facility] [place] body weight 115 [lb_av] 115 [lb_av] MEDEN T ([facility] Body mass index (BMI) [Ratio] 29.5 kg/m2 29.5 k g/m2 [facility] ([facility] Systolic blood pressure 110 mm[Hg] 110 mm[Hg] M EDENT ([facility] Diastolic blood pressure 60 mm[Hg] 60 mm[Hg] [facility] ([facility] Body temperature 98.2 [degF] 98.2 [degF] MEDENT ([facility] Heart rate 77 /min 77 /min MEDENT ([facility] Respiratory rate 16 /min 16 /min MEDENT ( [facility] Body height 63.50 [in_i] 63.50 [in_i] MEDENT ([facility] 5'3.50" Body weight 167.00 [lb_av] 167.00 [lb_av] MEDEN T ([facility] [place] body weight 115 [lb_av] 115 [lb_av] MEDEN T ([facility] Body mass index (BMI) [Ratio] 29.1 kg/m2 29.1 k g/m2 MEDENT ([facility] Oxygen saturation in Arterial blood by Pulse oximetry 98 % 98 % MEDENT ([facility] Body height 63.75 [in_i] 63.75 [in_i] MEDENT ([facility]) 5'3.75" Body weight 167.00 [lb_av] 167.00 [lb_av] MEDEN T ([facility]) Body mass index (BMI) [Ratio] 28.9 kg/m2 28.9 k g/m2 MEDENT ([facility]) Body surface area Derived from formula 1.81 m2 1.81 m2 MEDENT ([facility]) Systolic blood pressure 114 mm[Hg] 114 mm[Hg] M EDENT ([facility]) Diastolic blood pressure 68 mm[Hg] 68 mm[Hg] MEDENT ([facility]) Body surface area 1.81 m2 1.81 m2 MEDENT ([facility]) Body temperature 99.1 [degF] 99.1 [degF] MEDENT ([facility] Heart rate 77 /min 77 /min MEDENT ([facility] Body weight 166.00 [lb_av] 166.00 [lb_av] MEDEN T ([facility] [place] body weight 115 [lb_av] 115 [lb_av] MEDEN T ([facility] Systolic blood pressure 100 mm[Hg] 100 mm[Hg] M EDENT ([facility], [facility] Diastolic blood pressure 70 mm[Hg] 70 mm[Hg] [facility] ([facility] Respiratory rate 16 /min 16 /min [facility] ( [facility] Body height 63.50 [in_i] 63.50 [in_i] [facility] ([facility] 5'3.50" Body mass index (BMI) [Ratio] 28.9 kg/m2 28.9 k g/m2 [facility] ([facility] Oxygen saturation in Arterial blood by Pulse oximetry 98 % 98 % [facility] ([facility]
--- OUTSIDE RECORDS SUMMARY | 2021-04-24 09:36 | CCD | Continuity of Care Document ---
Author Author Maribel CAMERON Organization Unknown Address [address] [place] [address] Phone [phone] Care Team Providers Care Packing Checker Name Role Phone GuillaumeMariam diggs AUTM Unavailable Gerson Hare AUTM [phone] Problems Active Problems Provider Date Migraine Carolina [...] BSA (Body Surface Area) 1.81 m2 Results Description No Information Available Procedures Date Code Description Status 04/03/2021 33058 Preventive Visit Est 40-64 Yrs C ompleted 02/03/2018 54322425 Mammogram Completed 12/29/2015 [id number] Mammogram Completed Medical Devices Description No Information Available Encounters Type Date Location Provider Dx Diagnosis Office Visit 04/03/2021 8:45a [facility] motor setter Carolina Cameron MD Z0 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
--- OUTSIDE RECORDS SUMMARY | 2021-04-24 09:36 | CCD | Continuity of Care Document ---
Author Author Maribel HARE RPA Organization Unknown Address [address] [facility] [address] [place] [address] Phone [phone] Problems Active Problems Provider Date Posttraumatic stress [...] mouth every day as needed anxiety (istop: [id number]) 30tabs Jarred Waller D.O., FAAFP 08/17/2011 History Medications Topiramate 25mg Tablets take one tablet by mouth twice a day 60tabs Jarred Waller D.O., FAAFP 0 01/16/2021 - 04/17/2021 Immunizations CPT Code Status Date Vaccine Reaction Lot # [id number] Refused 02/29/2020 Influenza Virus Vaccine, Quadrivalent, Slit Virus, Im Use 3Y & Up 11120 Refused 03/23/2019 Influenza Virus Vaccine, Quadrivalent, Slit Virus, Im Use 3Y & Up RECEIVES AT WORK. Vital Signs Date Vital Result Comment 04/17/2021 8:36am BP Systolic 102 mmHg BP Diastolic 70 mmHg Body Temperature 98.2 F Heart Rate 78 /min Respiratory Rate 16 /min Height 63.50 inches 5'3.50" Weight 173.00 lb [place]ott Body Weight 115 lb BMI (Body Mass Index) 30.2 kg/m2 O2 % BldC Oximetry 97 % 01/16/2021 8:55am BP Systolic 112 mmHg BP Diastolic 72 mmHg Body Temperature 97.3 F Heart Rate 82 /min Respiratory Rate 16 /min Height 63.50 inches 5'3.50" Weight 170.00 lb Malott Body Weight 115 lb BMI (Body Mass Index) 29.6 kg/m2 O2 % BldC Oximetry 98 % Results Description No Information Available Procedures Date Code Description Status 04/17/2021 65656 Office/Outpatient Established Mo d MDM 30-39 Min Completed 01/16/2021 38129 Office/Outpatient Established Mo d MDM 30-39 Min Completed Medical Devices Description No Information Available Encounters Type Date Location Provider Dx Diagnosis Office Visit 04/17/2021 8:30a [facility] Gerson Hare, RP A E78.5 Hyperlipidemia, unspecified 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 Colonoscopy Sent [address] [address] [phone]
--- OUTSIDE RECORDS SUMMARY | 2021-04-24 09:36 | CCD | Continuity of Care Document ---
Author Author Maribel CAMERON Organization Unknown Address [address] [place] [address] Phone [phone] Care Team Providers Care Performance Architect Name Role Phone GuillaumeMariam diggs AUTM Unavailable Gerson Hare AUTM [phone] Problems Active Problems Provider Date Migraine Carolina [...] Available Procedures Date Code Description Status 04/03/2021 74364 Preventive Visit Est 40-64 Yrs C ompleted 02/03/2018 [id number] Mammogram Completed 12/29/2015 [id number] Mammogram Completed Medical Devices Description No Information Available Encounters Type Date Location Provider Dx Diagnosis Office Visit 04/03/2021 8:45a [facility] provisioning specialist Carolina Cameron MD Z0 1.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
[2021-04-24] MEDS ORDERED: LIDOCAINE 2% 100MG/5ML SDV (FOR ANES.) As Ordered ONE (09:43)
[2021-04-24] MEDS ORDERED: propofoL 200 MG/20 ML VIAL As Ordered ONE (11:07)
--- NOTE | 2021-04-24 12:13 | ROOR ---
Patient Name: Maribel Hector Procedure Date: 04/24/2021 11:29 AM Date of : 1970 Age: 50 Room: [facility] Gender: Female Note Status: Finalized Procedure: Colonoscopy Indications: Screening for colorectal malignant neoplasm Providers: Mihai Love MD Referring MD: VESNA EPSTEIN Requesting Provider: Medicines: Monitored Anesthesia Care Complications: No immediate complications. Procedure: Pre-Anesthesia Assessment: - Prior to the procedure, a History and Physical was performed, and patient medications and allergies were reviewed. The patient is competent. The risks and benefits of the procedure and the sedation options and risks were discussed with the patient. All questions were answered and informed consent was obtained. Patient identification and proposed procedure were verified by the physician, the nurse and the anesthesiologist in the procedure room. Mental Status Examination: alert and oriented. Airway Examination: normal oropharyngeal airway and neck mobility. Respiratory Examination: clear to auscultation. CV Examination: normal. Prophylactic Antibiotics: The patient does not require prophylactic antibiotics. Prior Anticoagulants: The patient has taken no previous anticoagulant or antiplatelet agents. ASA Grade Assessment: II - A patient with mild systemic disease. After reviewing the risks and benefits, the patient was deemed in satisfactory condition to undergo the procedure. The anesthesia plan was to use monitored anesthesia care (MAC). Immediately prior to administration of medications, the patient was re-assessed for adequacy to receive sedatives. The heart rate, respiratory rate, oxygen saturations, blood pressure, adequacy of pulmonary ventilation, and response to care were monitored throughout the procedure. The physical status of the patient was re-assessed after the procedure. The Colonoscope was introduced through the anus and advanced to the terminal ileum, with identification of the appendiceal orifice and IC valve. The colonoscopy was performed without difficulty. The patient tolerated the procedure well. The quality of the bowel preparation was good. The terminal ileum, ileocecal valve, appendiceal orifice, and rectum were photographed. Scope insertion time was 2 minutes. Scope withdrawal time was 8 minutes. The total duration of the procedure was 10 minutes. Findings: The perianal and digital rectal examinations were normal. The terminal ileum appeared normal. Three sessile polyps were found in the recto-sigmoid colon and transverse colon. The polyps were 3 to 4 mm in size. These polyps were removed with a cold snare. Resection and retrieval were complete. Verification of patient identification for the specimen was done by the physician and nurse using the patient's name, date and medical record number. Estimated blood loss was minimal. Non-bleeding external and internal hemorrhoids were found during retroflexion. The hemorrhoids were medium-sized. Impression: - The examined portion of the ileum was normal. - Three 3 to 4 mm polyps at the recto-sigmoid colon and in the transverse colon, removed with a cold snare. Resected and retrieved. - Non-bleeding external and internal hemorrhoids. Recommendation: - Patient has a contact number available for emergencies. The signs and symptoms of potential delayed complications were discussed with the patient. Return to normal activities tomorrow. Written discharge instructions were provided to the patient. - High fiber diet. - Continue present medications. - Await pathology results. - Use fiber, for example Citrucel, Fibercon, Konsyl or Metamucil. - Telephone GI clinic for pathology results in 2 weeks. - Return to primary care physician. - Return to GI clinic if persistent symptoms or new symptoms. Procedure Code(s): --- Professional --- 74703, Colonoscopy, flexible; with removal of tumor(s), polyp(s), or other lesion(s) by snare technique Diagnosis Code(s): --- Professional --- Z12.11, Encounter for screening for malignant neoplasm of colon K64.8, Other hemorrhoids K63.5, Polyp of colon CPT copyright 2019 [employer]. All rights reserved. The codes documented in this report are preliminary and upon renderer review may be revised to meet current compliance requirements. Mihai Love MD Mihai Love MD 04/24/2021 12:13:25 PM Electronically signed by Mihai Love MD Number of Addenda: 0 Note Initiated On: 04/24/2021 11:29 AM Estimated Blood Loss: Estimated blood loss was minimal.
[2021-04-24 12:20] VITALS: BP 129/87
== END 2021-04-24 12:27 | disposition home or self-care (01) ==
LOC: M OPP 09:30
PROVIDERS: ATTEND Internal Medicine Gastroenterology
DX: Z12.11 Encounter for screening for malignant neoplasm of colon (principal); K63.5 Polyp of colon; K64.8 Other hemorrhoids; Z79.899 Other long term (current) drug therapy; Z88.2 Allergy status to sulfonamides; Z88.1 Allergy status to other antibiotic agents; Z88.8 Allergy status to other drugs, medicaments and biological substances; Z80.49 Family history of malignant neoplasm of other genital organs

== ENCOUNTER → 2021-05-12 | Outpatient (CLI) | payer BC ==
[~2021-05-12] MED LIST changes: -NS 1,000 ML IV ONE
--- NOTE | 2021-05-12 15:17 | REPMRS ---
Patient History The patient states she had a clinical breast [id number]. Patient is postmenopausal. No known family history of cancer. No Hormone Replacement Therapy Tomosynthesis is performed. Volpara breast density is b. [facility] lifetime risk of breast cancer 8,2%. Patient states no breast complaints today. Patient has signed MRS History Sheet. Digital Woman Screen Mammo: May 12, 2021 - Exam #: [id number] Bilateral CC and MLO view(s) were taken. Technologist: Jacquelyn Leigh, [employer] Prior study comparison: March 24, 2020, bilateral digital woman screen mammo performed at [facility]. February 24, 2019, bilateral digital woman screen mammo performed at [facility]. FINDINGS: There are scattered fibroglandular densities. There has been no change in the appearance of the mammogram from the prior studies. There is a mild amount of residual fibroglandular tissue which is fairly symmetric. There is no interval development of dominant mass, architectural distortion, or clustered microcalcification suggestive of malignancy. Assessment: BI-RADS/ACR category 1 mammogram. Negative Mammogram. Recommendation Routine screening mammogram in 1 year (for women over age 40). This mammogram was interpreted with the aid of an FDA-approved computer-aided dectection system. Electronically Signed By: Ulisses Samano MD 05/12/21 [id number]
== END ==
LOC: M WHC 14:41
PROVIDERS: ATTEND Obstetrics & Gynecology
DX: Z12.31 Encounter for screening mammogram for malignant neoplasm of breast (principal)

== ENCOUNTER → 2022-04-09 | Outpatient (REF) | payer BC | LOC: M SFHCWAGY 13:52 | PROVIDERS: ATTEND Nurse Practitioner Family | DX: Z12.4 Encounter for screening for malignant neoplasm of cervix (principal) | CPT/HCPCS: 87624; G0123 ==

== ENCOUNTER → 2022-04-27 | Outpatient (CLI) | payer BC | LOC: M WHC 10:25 | PROVIDERS: ATTEND Physician Assistant | DX: R22.32 Localized swelling, mass and lump, left upper limb (principal) ==

== ENCOUNTER → 2022-05-21 | Outpatient (CLI) | payer BC ==
[2022-05-21 11:29] LABS: ALBUMIN 4.1 G/DL (3.2-5.2); ALT/SGPT 27 U/L (7.0-40); BILIRUBIN,TOTAL 0.4 MG/DL (0.3-1.2); BLOOD UREA NITROGEN 13 MG/DL (9-23); CALCIUM LEVEL 9.5 MG/DL (8.5-10.1); CARBON DIOXIDE LEVEL 28 MMOL/L (20-31); CHLORIDE LEVEL 104 MMOL/L (98-107); CHOLESTEROL LEVEL 181 MG/DL (<200); CHOLESTEROL RISK RATIO 2.31 (<5); CREATININE FOR GFR 0.85 MG/DL (0.55-1.30); GLOMERULAR FILTRATION RATE > 60.0 (>51); GLUCOSE, FASTING 95 MG/DL (60-100); HDL CHOLESTEROL 78.2 MG/DL (>40); LDL CHOLESTEROL 93.8 MG/DL (<100); NON-HDL-C 103 MG/DL; POTASSIUM SERUM 4.5 MMOL/L (3.5-5.1); SODIUM LEVEL 141 MMOL/L (136-145); TOTAL PROTEIN 7.3 G/DL (5.7-8.2); TRIGLYCERIDES LEVEL 45 MG/DL (<150)
== END ==
LOC: M PLALAB 07:54
PROVIDERS: ATTEND Physician Assistant
DX: E78.2 Mixed hyperlipidemia (principal)

== ENCOUNTER → 2022-05-21 | Outpatient (CLI) | payer BC | LOC: M WHC 07:20 | PROVIDERS: ATTEND Nurse Practitioner Family | DX: Z12.31 Encounter for screening mammogram for malignant neoplasm of breast (principal) ==

== ENCOUNTER → 2022-11-07 | Outpatient (CLI) | payer BC ==
[2022-11-07 18:34] LABS: HEMATOCRIT 40.7 % (36.0-47.0); HEMOGLOBIN 13.1 g/dl (12.0-15.5); MEAN CORPUSCULAR HEMOGLOBIN 29.8 pg (27.0-33.0); MEAN CORPUSCULAR HGB CONC 32.2 g/dl (32.0-36.5); MEAN CORPUSCULAR VOLUME 92.7 fl (80.0-96.0); PLATELET COUNT, AUTOMATED 285 10^3/uL (150-450); RED BLOOD COUNT 4.39 10^6/uL (4.00-5.40); WHITE BLOOD COUNT 6.3 10^3/uL (4.0-10.0)
[2022-11-07 18:54] LABS: ALKALINE PHOSPHATASE 82 U/L (46-116); ALT/SGPT 33 U/L (7.0-40); AST/SGOT 24 U/L (<34); BILIRUBIN,TOTAL 0.3 MG/DL (0.3-1.2); BLOOD UREA NITROGEN 14 MG/DL (9-23); CALCIUM LEVEL 9.4 MG/DL (8.5-10.1); CARBON DIOXIDE LEVEL 31 MMOL/L (20-31); CHLORIDE LEVEL 108 MMOL/L (98-107); CHOLESTEROL LEVEL 183 MG/DL (<200); CHOLESTEROL RISK RATIO 2.29 (<5); CREATININE FOR GFR 0.88 MG/DL (0.55-1.30); GLOMERULAR FILTRATION RATE > 60.0 (>51); GLUCOSE, FASTING 60 MG/DL (60-100); HDL CHOLESTEROL 79.8 MG/DL (>40); LDL CHOLESTEROL 92.8 MG/DL (<100); NON-HDL-C 103.2 MG/DL; POTASSIUM SERUM 4.2 MMOL/L (3.5-5.1); SODIUM LEVEL 140 MMOL/L (136-145); TOTAL PROTEIN 7.3 G/DL (5.7-8.2); TRIGLYCERIDES LEVEL 52 MG/DL (<150)
[2022-11-07 18:56] LABS: THYROID STIMULATING HORMONE 1.068 uIU/ML (0.55-4.78)
== END ==
LOC: M RAD 16:52
PROVIDERS: ATTEND Physician Assistant
DX: M25.562 Pain in left knee (principal); E78.5 Hyperlipidemia, unspecified

== ENCOUNTER → 2023-02-08 | Outpatient (CLI) | payer BC ==
[~2023-02-08] MED LIST changes: +ISOVUE-370 76% 100ML VIAL As Ordered ONE
== END ==
LOC: M RAD 07:50
PROVIDERS: ATTEND Physician Assistant
DX: R51.9 Headache, unspecified (principal)
CPT/HCPCS: 70470; Q9967

== ENCOUNTER → 2023-06-06 | Outpatient (CLI) | payer BC ==
[~2023-06-06] MED LIST changes: -ISOVUE-370 76% 100ML VIAL As Ordered ONE
== END ==
LOC: M WHC 09:47
PROVIDERS: ATTEND Nurse Practitioner Family
DX: Z12.31 Encounter for screening mammogram for malignant neoplasm of breast (principal)

== ENCOUNTER → 2023-06-06 | Outpatient (REF) | payer BC | LOC: M SFHCWAGY 15:18 | PROVIDERS: ATTEND Nurse Practitioner Family | DX: Z12.72 Encounter for screening for malignant neoplasm of vagina (principal); Z12.31 Encounter for screening mammogram for malignant neoplasm of breast; R87.618 Other abnormal cytological findings on specimens from cervix uteri | CPT/HCPCS: 87624; G0123 ==

== ENCOUNTER → 2023-09-16 | Outpatient (CLI) | payer BC ==
[2023-09-16 11:13] LABS: HEMATOCRIT 40.7 % (36.0-47.0); HEMOGLOBIN 13.3 g/dl (12.0-15.5); MEAN CORPUSCULAR HEMOGLOBIN 29.8 pg (27.0-33.0); MEAN CORPUSCULAR HGB CONC 32.7 g/dl (32.0-36.5); MEAN CORPUSCULAR VOLUME 91.1 fl (80.0-96.0); PLATELET COUNT, AUTOMATED 282 10^3/uL (150-450); RED BLOOD COUNT 4.47 10^6/uL (4.00-5.40); WHITE BLOOD COUNT 5.7 10^3/uL (4.0-10.0)
[2023-09-16 11:40] LABS: ALKALINE PHOSPHATASE 95 U/L (46-116); ALT/SGPT 24 U/L (7.0-40); AST/SGOT 17 U/L (<34); BILIRUBIN,TOTAL 0.4 MG/DL (0.3-1.2); BLOOD UREA NITROGEN 13 MG/DL (9-23); CALCIUM LEVEL 9.6 MG/DL (8.5-10.1); CARBON DIOXIDE LEVEL 30 MMOL/L (20-31); CHLORIDE LEVEL 107 MMOL/L (98-107); CHOLESTEROL LEVEL 176 MG/DL (<200); CHOLESTEROL RISK RATIO 2.52 (<5); CREATININE FOR GFR 0.83 MG/DL (0.55-1.30); GLOMERULAR FILTRATION RATE > 60.0 (>51); GLUCOSE, FASTING 88 MG/DL (60-100); HDL CHOLESTEROL 69.7 MG/DL (>40); LDL CHOLESTEROL 95.1 MG/DL (<100); NON-HDL-C 106.3 MG/DL; POTASSIUM SERUM 4.3 MMOL/L (3.5-5.1); SODIUM LEVEL 142 MMOL/L (136-145); TOTAL PROTEIN 7.2 G/DL (5.7-8.2); TRIGLYCERIDES LEVEL 56 MG/DL (<150)
== END ==
LOC: M PLALAB 07:38
PROVIDERS: ATTEND Physician Assistant
DX: E78.5 Hyperlipidemia, unspecified (principal)

== ENCOUNTER → 2023-11-11 | Outpatient (CLI) | payer BC | LOC: M PLALAB 13:02 | PROVIDERS: ATTEND Physician Assistant | DX: M79.621 Pain in right upper arm (principal) ==

== ENCOUNTER → 2024-01-20 | Outpatient (CLI) | payer BC ==
[2024-01-20 14:29] LABS: APPEARANCE, URINE HAZY (CLEAR); BACTERIA, URINE AUTO NEGATIVE (NEGATIVE); BILIRUBIN, URINE AUTO NEGATIVE (NEGATIVE); BLOOD, URINE BLOOD NEGATIVE (NEGATIVE); CALCIUM OXALATE CRYSTALS SMALL; COLOR, URINE AMBER (YELLOW); GLUCOSE, URINE (UA) AUTO NEGATIVE (NEGATIVE); KETONE, URINE AUTO NEGATIVE (NEGATIVE); LEUKOCYTE ESTERASE, URINE AUTO NEGATIVE (NEGATIVE); MUCUS, URINE SMALL (NEGATIVE); NITRITE, URINE AUTO NEGATIVE (NEGATIVE); PROTEIN, URINE AUTO NEGATIVE (NEGATIVE); RBC, URINE AUTO 0 /HPF (0-3); SPECIFIC GRAVITY URINE AUTO 1.023 (1.002-1.035); SQUAMOUS EPITHELIAL CELL UR AU 4 /HPF (0-6); UROBILINOGEN, URINE AUTO 0.2 mg/dL (0.0-2.0); WBC, URINE AUTO 0 /HPF (0-3)
[2024-01-20 14:31] LABS: HEMATOCRIT 41.2 % (36.0-47.0); HEMOGLOBIN 13.8 g/dl (12.0-15.5); MEAN CORPUSCULAR HEMOGLOBIN 29.9 pg (27.0-33.0); MEAN CORPUSCULAR HGB CONC 33.5 g/dl (32.0-36.5); MEAN CORPUSCULAR VOLUME 89.4 fl (80.0-96.0); PLATELET COUNT, AUTOMATED 299 10^3/uL (150-450); RED BLOOD COUNT 4.61 10^6/uL (4.00-5.40)
[2024-01-20 15:00] LABS: ALBUMIN 3.9 G/DL (3.2-5.2); ALKALINE PHOSPHATASE 91 U/L (46-116); ALT/SGPT 29 U/L (7.0-40); AST/SGOT 18 U/L (<34); BILIRUBIN,TOTAL 0.4 MG/DL (0.3-1.2); BLOOD UREA NITROGEN 13 MG/DL (9-23); CALCIUM LEVEL 10.1 MG/DL (8.5-10.1); CARBON DIOXIDE LEVEL 30 MMOL/L (20-31); CHLORIDE LEVEL 107 MMOL/L (98-107); CREATININE FOR GFR 0.88 MG/DL (0.55-1.30); GLOMERULAR FILTRATION RATE > 60.0 (>51); GLUCOSE, FASTING 65 MG/DL (60-100); SODIUM LEVEL 142 MMOL/L (136-145); TOTAL PROTEIN 7.2 G/DL (5.7-8.2)
== END ==
LOC: M PLALAB 10:28
PROVIDERS: ATTEND Physician Assistant Surgical
DX: M75.51 Bursitis of right shoulder (principal); M75.101 Unspecified rotator cuff tear or rupture of right shoulder, not specified as traumatic

== ENCOUNTER 2024-03-26 07:17 | Outpatient (RCR) | payer BC | END 2024-03-30 | LOC: M PT 07:17 | PROVIDERS: ATTEND Orthopaedic Surgery | DX: M25.511 Pain in right shoulder (principal); Z47.89 Encounter for other orthopedic aftercare ==

== ENCOUNTER → 2024-04-30 | Outpatient (RCR) | payer BC | LOC: M PT 03-31 08:11 | PROVIDERS: ATTEND Orthopaedic Surgery | DX: Z47.89 Encounter for other orthopedic aftercare (principal); M25.511 Pain in right shoulder ==

== ENCOUNTER → 2024-05-07 | Outpatient (CLI) | payer BC ==
[2024-05-07 10:17] LABS: CHOLESTEROL RISK RATIO 2.7 (<5); HDL CHOLESTEROL 81.7 MG/DL (>40); LDL CHOLESTEROL 128.7 MG/DL (<100); NON-HDL-C 139.3 MG/DL
== END ==
LOC: M PLALAB 08:04
PROVIDERS: ATTEND Physician Assistant
DX: E78.5 Hyperlipidemia, unspecified (principal)

== ENCOUNTER 2024-05-25 07:37 | Outpatient (RCR) | payer BC | END 2024-05-30 | LOC: M PT 07:37 | PROVIDERS: ATTEND Orthopaedic Surgery | DX: M25.511 Pain in right shoulder (principal); Z98.890 Other specified postprocedural states; Z47.89 Encounter for other orthopedic aftercare ==

== ENCOUNTER 2024-06-09 07:34 | Outpatient (RCR) | payer BC | END 2024-06-30 | LOC: M PT 07:34 | PROVIDERS: ATTEND Orthopaedic Surgery | DX: Z47.1 Aftercare following joint replacement surgery (principal) ==

== ENCOUNTER → 2024-11-11 | Outpatient (CLI) | payer BC | LOC: M WHC 12:50 | PROVIDERS: ATTEND Nurse Practitioner Family | DX: Z12.31 Encounter for screening mammogram for malignant neoplasm of breast (principal) ==

== ENCOUNTER → 2025-01-15 | Outpatient (CLI) | payer BC ==
[2025-01-15 17:23] LABS: PLATELET COUNT, AUTOMATED 295 10^3/uL (150-450)
[2025-01-15 17:40] LABS: INR 0.91
[2025-01-15 17:43] LABS: ALT/SGPT 29.0 U/L (7.0-40); AST/SGOT 22.0 U/L (<34); CALCIUM LEVEL 9.7 MG/DL (8.5-10.1); CARBON DIOXIDE LEVEL 30.0 MMOL/L (20-31); CHLORIDE LEVEL 101.0 MMOL/L (98-107); CREATININE FOR GFR 0.86 MG/DL (0.55-1.30); GLOMERULAR FILTRATION RATE 80.7 (>51); POTASSIUM SERUM 4.4 MMOL/L (3.5-5.1); SODIUM LEVEL 142.0 MMOL/L (136-145)
== END ==
LOC: M PLALAB 16:32
PROVIDERS: ATTEND Nurse Practitioner Acute Care
DX: I67.1 Cerebral aneurysm, nonruptured (principal)

== ENCOUNTER → 2025-01-25 | Outpatient (CLI) | payer BC ==
[2025-01-25 10:51] LABS: PLATELET COUNT, AUTOMATED 280 10^3/uL (150-450)
[2025-01-25 11:26] LABS: ALT/SGPT 43.0 U/L (7.0-40); AST/SGOT 29.0 U/L (<34); CALCIUM LEVEL 9.3 MG/DL (8.5-10.1); CARBON DIOXIDE LEVEL 29.0 MMOL/L (20-31); CHLORIDE LEVEL 104.0 MMOL/L (98-107); CHOLESTEROL LEVEL 201.0 MG/DL (<200); CHOLESTEROL RISK RATIO 2.59 (<5); CREATININE FOR GFR 0.82 MG/DL (0.55-1.30); GLOMERULAR FILTRATION RATE 85.5 (>51); LDL CHOLESTEROL 112.2 MG/DL (<100); NON-HDL-C 123.4 MG/DL; POTASSIUM SERUM 4.5 MMOL/L (3.5-5.1); SODIUM LEVEL 144.0 MMOL/L (136-145); TRIGLYCERIDES LEVEL 56.0 MG/DL (<150)
== END ==
LOC: M PLALAB 09:08
PROVIDERS: ATTEND Physician Assistant
DX: E78.5 Hyperlipidemia, unspecified (principal); G43.009 Migraine without aura, not intractable, without status migrainosus

== ENCOUNTER → 2025-05-07 | Outpatient (CLI) | payer BC ==
[2025-05-07 18:11] LABS: PLATELET COUNT, AUTOMATED 321 10^3/uL (150-450)
[2025-05-07 18:32] LABS: ALT/SGPT 30.0 U/L (7.0-40); AST/SGOT 25.0 U/L (<34); CALCIUM LEVEL 9.1 MG/DL (8.5-10.1); CARBON DIOXIDE LEVEL 30.0 MMOL/L (20-31); CHLORIDE LEVEL 101.0 MMOL/L (98-107); CREATININE FOR GFR 0.85 MG/DL (0.55-1.30); GLOMERULAR FILTRATION RATE 81.9 (>51); POTASSIUM SERUM 4.7 MMOL/L (3.5-5.1); SODIUM LEVEL 140.0 MMOL/L (136-145)
[2025-05-07 18:47] LABS: INR 0.93
== END ==
LOC: M PLALAB 16:38
DX: Z01.818 Encounter for other preprocedural examination (principal); I67.1 Cerebral aneurysm, nonruptured